=== PATIENT | male | born 1935 | race Caucasian/White ===

== ENCOUNTER 2019-06-11 13:58 | Inpatient (IN) | payer OTHER, SELFPAY ==
[2019-06-11] VITALS (91 sets, daily range): BP systolic 77–158; BP diastolic 38–110; PULSE 55–173; RESP 15–38; TEMP 36.8–39.7; O2SAT 29–98
--- NOTE | 2019-06-11 14:58 | ED.GENADUL_ITS ---
Discharge Plan Disposition Patient Disposition: [facility] INPATIENT Condition: Serious Discharge Details Chief Complaint: GenMedical Clinical Impression: Fever Primary Care Provider: Ulises Mckeon ED Provider: Aníbal Hewitt Home Meds and New Rx's Prescriptions: No Action aspirin 325 mg Tablet,Delayed Release (Dr/Ec) 325 mg PO DAILY RF: 0 gabapentin 100 mg Capsule 100 mg PO BID RF: 0 Medical Decision Making 1500??83-year-old male with multiple medical problems, here with shaking chills after being outside in the cold for prolonged period of time. Patient is currently tachycardic and in atrial fibrillation. Screening ECG was reviewed and interpreted by me: Alexandra. fib 125 bpm, low voltage in limb leads, no STEMI. Consider infectious etiology. No signs of focal bacterial infection on exam. Plan to check screening labs, chest x-ray and urinalysis. --Labs reviewed and leukocytosis noted. Lactate 1.6. Patient now febrile. Chest x-ray reviewed and interpreted by radiology: Pleural thickening in the right apex, asymmetric with the contralateral side. Consider CT. Scarring, infiltrate or lesion not excluded. Urinalysis reviewed and is not consistent with UTI. Plan to proceed to CT of the chest. --Labs reviewed and influenza testing negative. CT of the chest was interpreted by radiology:IMPRESSION: 1. Small pericardial effusion. 2. Moderate centrilobular pulmonary emphysema. 3. Pulmonary nodule.For patients at low risk (minimal or absent history of smoking and of other known risk factors), recommend CT at 6-12 months, then consider CT at 18-24 months. For patients at high risk (history of smoking or of other known risk factors), recommend CT at 6-12 months, then CT at 18-24 months. (Naren et al., Fleischner Society, 2017) CT of the neck was interpreted by radiology: IMPRESSION: 1. Status post right neck surgery. No recurrent or residual disease identified. 2. No enhancing masses. 3. No metastatic disease or lymphadenopathy. Unclear etiology at this point for patient's fever. He remains tachycardic in atrial fibrillation with heart rate in the 1 teens to 120. Blood cultures have been sent. Plan will be to admit for observation. Plan to give Zosyn 4.5 mg IV to cover for potential bacteremia. I spoke with Dr. Humphrey who will admit the patient. He request bridging orders be placed to the floor. HPI General Mode of arrival: ambulatory . Date/Time Provider Initiated Documentation: 06/11/19 14:38 . Limitations to Documentation: no limitations . Information obtained by: patient . HPI Narrative: 83-year-old male with multiple medical problems including history of atrial fibrillation, throat cancer, status post G-tube placement, here with chief complaint of chills. Patient notes he was outside working this morning and suddenly became quite cold. He had been working outside in the cold weather for some time. He came inside and his noted he was confused and took his temperature and it was 95 ?F. He had shaking chills at that time. Patient does note chronic excessive phlegm chronic unchanged cough. He denies urinary symptoms. Denies chest pain or shortness of breath. Denies abdominal pain. No headache or neck pain. Patient denies rash. Related Data Home Medications Medication Instructions Recorded Confirmed aspirin 325 mg PO DAILY 06/11/19 06/11/19 gabapentin 100 mg PO BID 06/11/19 06/11/19 Allergies Allergy/AdvReac Type Severity Reaction Status Date / Time No Known Allergies Allergy Unverified 06/11/19 14:24 General Stated Complaint: GenMedical KWESI: 3 Review of Systems Constitutional Constitutional: Reports chills PFSH Social History Smoking/Tobacco Use Status: Former Tobacco Use Alcohol Intake: former Substance use type: does not use Do you feel safe at home: Yes Do you feel safe in your relationship?: Yes Exam Const General: cooperative and no acute distress HENMT Mouth: moist mucous membranes Eyes Conjunctivae: normal conjunctivae Sclera: normal sclerae Neck Neck: trachea midline and supple Resp Auscultation: clear to auscultation bilaterally, no rales, no rhonchi and no wheezes Cardio Jugular venous pressure: no JVD Rate: tachycardic Rhythm: abnormal rhythm irregularly irregular GI Palpation: soft, not firm, no guarding, no masses, not rigid and nontender Skin General skin exam: no rashes or lesions noted Neuro General: alert, awake, oriented x3 and tone normal Extrem General: no calf tenderness and no edema Psych Appearance: grossly normal Mental Status: mental status grossly normal Speech and Movement: speech and movement normal Course Vital Signs Vital signs: Vital Signs Temperature 37.3 C 06/11/19 14:20 Pulse 117 H 06/11/19 14:20 Respiratory Rate 18 06/11/19 14:20 Blood Pressure 158/109 H 06/11/19 14:20 Pulse Oximetry 95 06/11/19 14:20 Temperature 37.3 C 06/11/19 14:20 Temperature Source Skin 06/11/19 14:20 Pulse 117 H 06/11/19 14:20 Respiratory Rate 22 06/11/19 14:45 Respiratory Effort 06/11/19 14:45 Respiratory Depth Normal 06/11/19 14:45 Blood Pressure 158/109 H 06/11/19 14:20 Blood Pressure Position Sitting 06/11/19 14:20 Pulse Oximetry 95 06/11/19 14:20 Oxygen Delivery Method Room Air 06/11/19 14:20 Oxygen Flow Rate 0 06/11/19 14:20
[2019-06-11 15:05] LABS: Abs Immature Grans 0.02 k/cumm (0.0-0.09); Absolute Basophil Count 0.01 k/cumm (0.0-0.2); Absolute Eosinophil Count 0.01 k/cumm (0.0-0.7); Absolute Neutrophil Count 12.59 k/cumm (1.2-6.7); Basophils % 0.1; Eosinophils % 0.1; HCT 43.5 % (40.0-50.0); HGB 14.6 g/dL (13.5-17.5); Immature Grans % 0.2 %; Lactate 1.6 mmol/L (0.6-1.4); Lymphocytes % 1.7; Mean Corp. HGB Concentration 33.6 g/dL (32.0-36.0); Mean Corpuscular Hemoglobin 33.4 pg (27.0-33.0); Mean Corpuscular Volume 99.5 fL (80-95); Mean Platelet Volume 12.6 fL (8.0-11.0); Monocytes % 2.6; Neutrophils % 95.3; Platelet Count 142 x1000/uL (130-400); RBC 4.37 m/cumm (4.50-6.00); RBC Distribution Width 12.5 % (11.8-14.1); White Blood Cell Count 13.21 k/cumm (4.4-10.8)
[2019-06-11 15:06] LABS: Absolute Lymphocyte Count 0.22 k/cumm (1.2-3.4); Absolute Monocyte Count 0.34 k/cumm (0.11-0.7)
[2019-06-11 15:36] LABS: ALT 29 U/L (16-63); AST 35 U/L (15-37); Albumin 3.7 g/dL (3.4-5.0); Alkaline Phosphatase 107 U/L (46-116); Anion Gap 8.1 mmol/L (3-11); BUN 34 mg/dL (7-18); Bilirubin, Total 1.4 mg/dL (0.2-1.0); CO2 29.9 mmol/L (21.0-32.0); CREATININE 1.11 mg/dL (0.70-1.30); Calcium 9.8 mg/dL (8.5-10.1); Chloride 103 mmol/L (98-107); Glucose 100 mg/dL (74-106); Magnesium 1.6 mg/dL (1.8-2.4); Potassium 4.6 mmol/L (3.5-5.1); Sodium 141 mmol/L (136-145); Total Protein 7.5 g/dL (6.4-8.2); Troponin I < 0.05 ng/Ml (<0.06)
[2019-06-11 15:37] LABS: TSH (W/Ref FT4) 7.49 uIU/mL (0.36-3.74)
--- NOTE | 2019-06-11 15:53 | DI.RAD_ITS ---
EXAM: XR CHEST 2V PA LATERAL INDICATION: fever. COMPARISON: CT NECK CHEST W from 06/11/2019 TECHNIQUE: 2D digital imaging was performed. FINDINGS: The heart size is normal. Surgical clips are seen at the right lower neck. There is upper lobe vol ume loss and underlying emphysematous changes and mild scarring. No infiltrate, effusion or pulmonar y edema is seen. There is no thoracic compression fracture. IMPRESSION: No acute findings.
[2019-06-11 16:12] LABS: FREE T4 0.79 ng/dL (0.76-1.46)
--- NOTE | 2019-06-11 16:35 | DI.VRAD_ITS ---
PROCEDURE INFORMATION: Exam: XR Chest, 2 Views Exam date and time: 06/11/2019 3:58 PM Age: 83 years old Clinical indication: Other: Fever TECHNIQUE: Imaging protocol: XR of the chest Views: 2 views. COMPARISON: No relevant prior studies available. FINDINGS: Lungs: See Pleural Space Finding. Pleural space: Pleural thickening in the right apex, asymmetric with the contralateral side. Consider CT. Scarring, infiltrate or lesion is not excluded. Heart/Mediastinum: Unremarkable. No cardiomegaly. Bones/joints: Degenerative changes in the spine. IMPRESSION: Pleural thickening in the right apex, asymmetric with the contralateral side. Consider CT. Scarring, infiltrate or lesion is not excluded. Dictated and Authenticated by: Jong Odonnell MD. Ordering:JAMAAL Spangler MD
[2019-06-11 16:49] LABS: Bilirubin Negative (Negative); Blood Negative (Negative); Clarity Clear (Clear); Glucose Negative (Negative); Ketones 15 mg/dL (Negative); Leukocyte Esterase Negative (Negative); Nitrite Negative (Negative); Specific Gravity 1.015 (1.005-1.025); Urobilinogen 0.2 EU/dL (Up TO 0.2); pH >= 9.0 (5-8)
[2019-06-11] MEDS: Omnipaque 350 MG/ML 100 ML BTL IJ (17:25)
--- NOTE | 2019-06-11 17:27 | DI.CT_ITS ---
EXAM: CT NECK CHEST W CLINICAL HISTORY: fever, prior throat ca, s/p radiation and resection TECHNIQUE: Post IV contrast of 100 cc's of Omnipaque 350. COMPARISON: No exams were available for comparison FINDINGS: Neck CT: The patient is status post surgery with resection of the right submandibular gland. No ad enopathy, abscess or fluid collection is seen. The airway is unremarkable. There is no significant tonsillar enlargement. No thyroid nodules are seen. Degenerative changes are noted in the cervical spine. Chest CT: There is a small pericardial effusion. No pleural effusions are seen. There is central lo bular emphysema. No focal infiltrate or adenopathy is seen. A 7 millimeter nodule is noted in the r ight upper lobe. The aorta is calcified but normal in diameter. Degenerative changes are seen in th e spine. IMPRESSION: Neck CT: Status post resection of the right submandibular gland. No evidence of mass, adenopathy or fluid collection. Chest CT: Small pericardial effusion. Centrilobular emphysema. 7 millimeter right upper lobe nodule . Comparison with previous exams is recommended if available. If no comparison exams are available , follow-up CT is recommended 6-12 months.
--- NOTE | 2019-06-11 18:08 | DI.VRAD_ITS ---
PROCEDURE INFORMATION: Exam: CT Neck With Contrast Exam date and time: 06/11/2019 5:30 PM Age: 83 years old Clinical indication: Fever; Other: HX throat CA, rapition and resection; Prior surgery TECHNIQUE: Imaging protocol: Computed tomography images of the neck with intravenous contrast. COMPARISON: CR XR CHEST 2V PA LATERAL 06/11/2019 3:53 PM FINDINGS: Nasopharynx: Unremarkable. Oropharynx: Unremarkable. No significant tonsillar enlargement. Hypopharynx: Unremarkable Larynx: Unremarkable. Normal epiglottis. Retropharyngeal space: Unremarkable. Submandibular/Parotid glands: Right submandibular gland appears to have been removed. Contralateral submandibular and bilateral parotid glands appear normal. Thyroid: Normal. No enlarged or calcified nodules. Lymph nodes: Unremarkable. No lymphadenopathy. Trachea: Visualized trachea is unremarkable. Bones/joints: Grade 1 anterolisthesis of C4 on C5. Degenerative disc disease at C5-6 and C6-7. Degenerative changes and atlantoaxial joint. Soft tissues: Unremarkable. No significant soft tissue swelling. Other findings: Status post right neck surgery. Multilevel facet arthrosis. IMPRESSION: 1. Status post right neck surgery. No recurrent or residual disease identified. 2. No enhancing masses. 3. No metastatic disease or lymphadenopathy. PROCEDURE INFORMATION: Exam: CT Chest With Contrast Exam date and time: 06/11/2019 5:30 PM Age: 83 years old Clinical indication: Fever; Other: HX throat CA, rapition and resection; Prior surgery TECHNIQUE: Imaging protocol: Computed tomography of the chest with intravenous contrast. COMPARISON: CR XR CHEST 2V PA LATERAL 06/11/2019 3:53 PM FINDINGS: Lungs: Moderate centrilobular pulmonary emphysema. 7 mm nodule in the right upper lobe. Pleural space: Unremarkable. No pneumothorax. No pleural effusion. Heart: Small pericardial effusion. Aorta: Unremarkable. No aortic aneurysm. Lymph nodes: Unremarkable. No enlarged lymph nodes. Stomach and bowel: PEG tube in place. Bones/joints: Degenerative changes in the spine. Soft tissues: Unremarkable. Other findings: Atherosclerosis. IMPRESSION: 1. Small pericardial effusion. 2. Moderate centrilobular pulmonary emphysema. 3. Pulmonary nodule.For patients at low risk (minimal or absent history of smoking and of other known risk factors), recommend CT at 6-12 months, then consider CT at 18-24 months. For patients at high risk (history of smoking or of other known risk factors), recommend CT at 6-12 months, then CT at 18-24 months. (Naren et al., Fleischner Society, 2017) Dictated and Authenticated by: Jong Odonnell MD. Ordering:JAMAAL Spangler MD
[2019-06-11] MEDS: PIPERACILLIN/TAZO 4.5 GM in Normal Saline 100 ML IVPB (19:15)
[2019-06-11] MEDS: Normal Saline 500 ML IV (19:26)
[2019-06-11] MEDS: ACETAMINOPHEN 1,000 MG/100 ML BTL 400 MG IVPB (19:38)
[2019-06-11 20:04] LABS: Lactate 0.9 mmol/L (0.6-1.4)
[2019-06-11 20:33] LABS: Procalcitonin 6.6 ng/mL
[2019-06-11] MEDS: Normal Saline 1,000 ML 1000 ML IV ×2 (21:15→21:30)
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
[2019-06-12] VITALS (72 sets, daily range): BP systolic 85–157; BP diastolic 40–99; PULSE 54–181; RESP 17–33; TEMP 36.5–38.4; O2SAT 91–99
[2019-06-12] MEDS: Normal Saline 1,000 ML 85 ML IV ×3 (01:00→18:08)
[2019-06-12] MEDS: PIPERACILLIN/TAZO 4.5 GM in Normal Saline 100 ML IVPB ×3 (02:02→17:26)
[2019-06-12] MEDS: VANCOMYCIN 1,250 MG in Normal Saline 250 ML 167 MG IV (02:25)
[2019-06-12] MEDS: Water,Injection,Sterile 10 ML VIAL (02:28)
[2019-06-12] MEDS: Normal Saline Flush 10 ML SYR IVP ×2 (05:10→09:44)
[2019-06-12] MEDS: MAGNESIUM SULFATE 4 GM/100 ML BAG IVPB (06:38)
[2019-06-12 07:20] LABS: Lactate 1.2 mmol/L (0.6-1.4)
[2019-06-12 07:25] LABS: Abs Immature Grans 0.03 k/cumm (0.0-0.09); Absolute Basophil Count 0.01 k/cumm (0.0-0.2); Absolute Lymphocyte Count 0.41 k/cumm (1.2-3.4); Absolute Monocyte Count 0.58 k/cumm (0.11-0.7); Absolute Neutrophil Count 13.47 k/cumm (1.2-6.7); Basophils % 0.1; HCT 37.1 % (40.0-50.0); HGB 12.3 g/dL (13.5-17.5); Immature Grans % 0.2 %; Lymphocytes % 2.8; Mean Corp. HGB Concentration 33.2 g/dL (32.0-36.0); Mean Corpuscular Hemoglobin 32.7 pg (27.0-33.0); Mean Corpuscular Volume 98.7 fL (80-95); Mean Platelet Volume 12.5 fL (8.0-11.0); Neutrophils % 92.9; Platelet Count 119 x1000/uL (130-400); RBC 3.76 m/cumm (4.50-6.00)
[2019-06-12 07:38] LABS: C-Reactive Protein 6.93 mg/dL (0.0-0.3); Magnesium 1.7 mg/dL (1.8-2.4)
[2019-06-12 07:46] LABS: ALT 23 U/L (16-63); AST 31 U/L (15-37); Albumin 2.8 g/dL (3.4-5.0); Alkaline Phosphatase 71 U/L (46-116); Anion Gap 8.6 mmol/L (3-11); BUN 34 mg/dL (7-18); Bilirubin, Total 1.2 mg/dL (0.2-1.0); CO2 25.4 mmol/L (21.0-32.0); CREATININE 1.14 mg/dL (0.70-1.30); Calcium 8.8 mg/dL (8.5-10.1); Chloride 106 mmol/L (98-107); Glucose 118 mg/dL (74-106); Potassium 4.1 mmol/L (3.5-5.1); Sodium 140 mmol/L (136-145); Total Protein 5.9 g/dL (6.4-8.2)
[2019-06-12 08:05] LABS: Procalcitonin 8.7 ng/mL
[2019-06-12 08:06] LABS: ESR 24 mm/hr (1-20)
--- NOTE | 2019-06-12 08:15 | PGE_ITS ---
Date of Service Date of service: 06/12/19 Time of Service: 12:17 Assessment and Plan Assessment and plan (1) Sepsis: Status: Acute Assessment and plan: Shock resolved. ? source - imaging of the chest is negative for infection, but probability of aspiration is high. While CT of the abdomen is negative, intraabdominal infection is also possible. RLE cellulitis/OM 2nd/3rd digits also possible. 2/4 blood culture bottles (same set) positive for GPC. Endocarditis to be ruled out. Echo (TTE) is pending for tomorrow. Repeat blood cultures are pending. Obtaining sputum culture as well. The patient does seem to be clinically fluid responsive and not fluid overloaded, so we will continue IVF. Abx escalated: added levofloxacin. Consult podiatry and general surgery (?PEG tube issue, ?peritonitis - less likely). Continue to monitor in the ICU. (2) Atrial fibrillation: Status: Chronic Assessment and plan: HR now controlled - probably better in response to IVF and abx. Continue to monitor. (3) Hypomagnesemia: Status: Acute Assessment and plan: Replete and recheck in am (4) Incidental lung nodule, > 3mm and < 8mm: Status: Acute Assessment and plan: Incidental finding on his CT scan. Will need outpatient PET scan. (5) Dysphagia: Status: Acute Assessment and plan: NPO except thin water/coffee. Consider obtaining swallow eval on this admission. (6) DVT prophylaxis: Status: Acute Assessment and plan: Lovenox (7) Discharge planning issues: Status: Acute Assessment and plan: Full code obtain palliative care consult. Keep in ICU. Total Critical Care Time 40 minutes Subjective Subjective Interval history since last seen: Off pressors since 2 am - did become hypertensive transiently, now back to 90-low 100's SBP. MAP 65-67. On NS at 85 cc/hr. HR up to 145 when standing; Afib. HR in 60's-70's at rest. Mentating ok. Reported dizziness earlier today, but it has resolved now. Thick secretions - sputum sample sent. Not requiring oxygen. Nursing notes pain around PEG tube and redness/lesions on RLE 2nd and 3rd digits. Has 2 IVs. Intermittent numbness L hand/fingers since falling on his elbow 1 week ago. Exam Narrative Exam Narrative: General: Very pleasant elderly male, receiving tube feeding at the time that I come to see him, appears comfortable, A&Ox3 HEENT: EOMI, MMM Heart: RRR, no m/r/g, mildly tachycardic Lungs: scattered crackles throughout, somewhat clears with coughing Abdomen: soft, but he does jump when I press around his PEG tube site - the patient states it is because it is cold Extremities: no e/c/c BLE's. 2+ pedal pulses B. RLE 2nd and 3rd digit erythematous with lesions at the tips. No open skin at this time. Objective Objective Clinical Data: Abnormal lab results 06/11/19 06/11/19 06/11/19 Range/Units 15:00 15:00 15:00 WBC 13.21 H (4.4-10.8) k/cumm RBC 4.37 L (4.50-6.00) m/cumm Hgb (13.5-17.5) g/dL Hct (40.0-50.0) % MCV 99.5 H (80-95) fL MCH 33.4 H (27.0-33.0) pg Plt Count (130-400) x1000/uL MPV 12.6 H (8.0-11.0) fL Absolute Neutrophils 12.59 H (1.2-6.7) k/cumm Absolute Lymphocytes 0.22 L (1.2-3.4) k/cumm ESR (1-20) mm/hr BUN 34 H (7-18) mg/dL Glucose (74-106) mg/dL Lactate 1.6 H (0.6-1.4) mmol/L Magnesium 1.6 L (1.8-2.4) mg/dL Total Bilirubin 1.4 H (0.2-1.0) mg/dL C-Reactive Protein (0.0-0.3) mg/dL Total Protein (6.4-8.2) g/dL Albumin (3.4-5.0) g/dL TSH (0.36-3.74) uIU/mL Urine pH (5-8) Urine Ketones (Negative) mg/dL 06/11/19 06/11/19 06/12/19 Range/Units 15:00 16:38 07:06 WBC (4.4-10.8) k/cumm RBC (4.50-6.00) m/cumm Hgb (13.5-17.5) g/dL Hct (40.0-50.0) % MCV (80-95) fL MCH (27.0-33.0) pg Plt Count (130-400) x1000/uL MPV (8.0-11.0) fL Absolute Neutrophils (1.2-6.7) k/cumm Absolute Lymphocytes (1.2-3.4) k/cumm ESR (1-20) mm/hr BUN 34 H (7-18) mg/dL Glucose 118 H (74-106) mg/dL Lactate (0.6-1.4) mmol/L Magnesium (1.8-2.4) mg/dL Total Bilirubin 1.2 H (0.2-1.0) mg/dL C-Reactive Protein (0.0-0.3) mg/dL Total Protein 5.9 L (6.4-8.2) g/dL Albumin 2.8 L (3.4-5.0) g/dL TSH 7.49 H (0.36-3.74) uIU/mL Urine pH >= 9.0 H (5-8) Urine Ketones 15 H (Negative) mg/dL 06/12/19 06/12/19 06/12/19 Range/Units 07:06 07:06 07:06 WBC 14.50 H (4.4-10.8) k/cumm RBC 3.76 L (4.50-6.00) m/cumm Hgb 12.3 L D (13.5-17.5) g/dL Hct 37.1 L (40.0-50.0) % MCV 98.7 H (80-95) fL MCH (27.0-33.0) pg Plt Count 119 L (130-400) x1000/uL MPV 12.5 H (8.0-11.0) fL Absolute Neutrophils 13.47 H (1.2-6.7) k/cumm Absolute Lymphocytes 0.41 L (1.2-3.4) k/cumm ESR 24 H (1-20) mm/hr BUN (7-18) mg/dL Glucose (74-106) mg/dL Lactate (0.6-1.4) mmol/L Magnesium 1.7 L (1.8-2.4) mg/dL Total Bilirubin (0.2-1.0) mg/dL C-Reactive Protein 6.93 H (0.0-0.3) mg/dL Total Protein (6.4-8.2) g/dL Albumin (3.4-5.0) g/dL TSH (0.36-3.74) uIU/mL Urine pH (5-8) Urine Ketones (Negative) mg/dL Vital Signs Temperature 37.1 C 06/12/19 03:24 Temperature Source Temporal Artery Scan 06/12/19 08:04 Pulse 62 06/12/19 08:01 Pulse 80 06/12/19 08:01 Respiratory Rate 30 H 06/12/19 08:01 Respiratory Effort Non-Labored 06/12/19 03:24 Respiratory Depth Shallow 06/12/19 03:24 Respiratory Pattern Tachypnea 06/12/19 03:24 Blood Pressure 97/53 L 06/12/19 08:01 Blood Pressure Mean 63 06/12/19 08:01 Blood Pressure Position Sitting 06/11/19 14:20 Pulse Oximetry 93 L 06/12/19 08:01 Oxygen Delivery Method Room Air 06/12/19 03:24 Oxygen Flow Rate 0 06/12/19 03:24 Pain Level 37 06/12/19 08:04 Intake & Output 06/11/19 06/11/19 06/12/19 11:59 23:59 11:59 Intake Total 3.124 / 3.124 3983.75 / 3983.75 Output Total 475 / 475 Balance 3.124 / 3.124 3508.75 / 3508.75 Weight 77.111 kg 82 kg Intake: IV 3.124 / 3.124 3509.75 / 3509.75 Oral 474 / 474 Output: Urine 475 / 475 Other: Urine Color Light Ellen Urine Appearance Clear Urine Odor Normal Voiding Methods Urinal Laboratory Results WBC 14.50 k/cumm (4.4-10.8) H 06/12/19 07:06 RBC 3.76 m/cumm (4.50-6.00) L 06/12/19 07:06 Hgb 12.3 g/dL (13.5-17.5) L D 06/12/19 07:06 Hct 37.1 % (40.0-50.0) L 06/12/19 07:06 MCV 98.7 fL (80-95) H 06/12/19 07:06 MCH 32.7 pg (27.0-33.0) 06/12/19 07:06 MCHC 33.2 g/dL (32.0-36.0) 06/12/19 07:06 RDW 13.0 % (11.8-14.1) 06/12/19 07:06 Plt Count 119 x1000/uL (130-400) L 06/12/19 07:06 MPV 12.5 fL (8.0-11.0) H 06/12/19 07:06 Immature Gran % 0.2 % 06/12/19 07:06 Neutrophils % 92.9 06/12/19 07:06 Lymphocytes % 2.8 06/12/19 07:06 Monocytes % 4.0 06/12/19 07:06 Eosinophils % 0.0 06/12/19 07:06 Basophils % 0.1 06/12/19 07:06 Absolute Neutrophils 13.47 k/cumm (1.2-6.7) H 06/12/19 07:06 Absolute Lymphocytes 0.41 k/cumm (1.2-3.4) L 06/12/19 07:06 Absolute Monocytes 0.58 k/cumm (0.11-0.7) 06/12/19 07:06 Absolute Eosinophils 0.00 k/cumm (0.0-0.7) 06/12/19 07:06 Absolute Basophils 0.01 k/cumm (0.0-0.2) 06/12/19 07:06 ESR 24 mm/hr (1-20) H 06/12/19 07:06 Sodium 140 mmol/L (136-145) 06/12/19 07:06 Potassium 4.1 mmol/L (3.5-5.1) 06/12/19 07:06 Chloride 106 mmol/L (98-107) 06/12/19 07:06 Carbon Dioxide 25.4 mmol/L (21.0-32.0) 06/12/19 07:06 Anion Gap 8.6 mmol/L (3-11) 06/12/19 07:06 BUN 34 mg/dL (7-18) H 06/12/19 07:06 Creatinine 1.14 mg/dL (0.70-1.30) 06/12/19 07:06 Estimated GFR/1.73 m2 >= 60.00 (mL/min/1.73m2) 06/12/19 07:06 Glucose 118 mg/dL (74-106) H 06/12/19 07:06 Lactate 1.2 mmol/L (0.6-1.4) 06/12/19 07:06 Calcium 8.8 mg/dL (8.5-10.1) 06/12/19 07:06 Magnesium 1.7 mg/dL (1.8-2.4) L 06/12/19 07:06 Total Bilirubin 1.2 mg/dL (0.2-1.0) H 06/12/19 07:06 AST 31 U/L (15-37) 06/12/19 07:06 ALT 23 U/L (16-63) 06/12/19 07:06 Alkaline Phosphatase 71 U/L (46-116) 06/12/19 07:06 Troponin I < 0.05 ng/Ml (<0.06) 06/11/19 15:00 C-Reactive Protein 6.93 mg/dL (0.0-0.3) H 06/12/19 07:06 Total Protein 5.9 g/dL (6.4-8.2) L 06/12/19 07:06 Albumin 2.8 g/dL (3.4-5.0) L 06/12/19 07:06 Procalcitonin 8.7 ng/mL 06/12/19 07:06 TSH 7.49 uIU/mL (0.36-3.74) H 06/11/19 15:00 Free T4 0.79 ng/dL (0.76-1.46) 06/11/19 15:00 Urine Color Yellow (Yellow) 06/11/19 16:38 Urine Clarity Clear (Clear) 06/11/19 16:38 Urine pH >= 9.0 (5-8) H 06/11/19 16:38 Ur Specific [place] 1.015 (1.005-1.025) 06/11/19 16:38 Urine Protein Negative mg/dL (Negative) 06/11/19 16:38 Urine Ketones 15 mg/dL (Negative) H 06/11/19 16:38 Urine Blood Negative (Negative) 06/11/19 16:38 Urine Nitrite Negative (Negative) 06/11/19 16:38 Urine Bilirubin Negative (Negative) 06/11/19 16:38 Urine Urobilinogen 0.2 EU/dL (Up TO 0.2) 06/11/19 16:38 Ur Leukocyte Esterase Negative (Negative) 06/11/19 16:38 Urine Glucose Negative mg/dL (Negative) 06/11/19 16:38 CT abdomen/pelvis with contrast: Pleural space: Small bilateral pleural effusions Liver: Normal. No mass. Gallbladder and bile ducts: Normal. No calcified stones. No ductal dilation. Pancreas: Normal. No ductal dilation. Spleen: Normal. No splenomegaly. Adrenals: Normal. No mass. Kidneys and ureters: Normal. No hydronephrosis. Stomach and bowel: Unremarkable. No obstruction. No mucosal thickening. Appendix: No evidence of appendicitis. Intraperitoneal space: Unremarkable. No free air. No significant fluid collection. Vasculature: Unremarkable. No abdominal aortic aneurysm. Lymph nodes: Unremarkable. No enlarged lymph nodes. Bladder: Unremarkable as visualized. Reproductive: Unremarkable as visualized. Bones/joints: Unremarkable. No acute fracture. Soft tissues: Unremarkable.
--- NOTE | 2019-06-12 08:22 | DI.CT_ITS ---
EXAM: CT ABDOMEN PELVIS W CLINICAL HISTORY: abdominal pain TECHNIQUE: Post IV contrast. No oral contrast. Residual contrast is seen within the renal collecti ng system and bladder secondary to the previous chest and neck CT. COMPARISON: No exams were available for comparison FINDINGS: Small bilateral pleural effusions and minimal basilar atelectasis. The liver, gallbladder, spleen, pancreas, kidneys and adrenals are unremarkable. A PEG tube is noted in the stomach. There is respi ratory motion on the mid portion of the scan. No bowel dilatation is seen. There is a right inguina l hernia containing a nonobstructed loop of bowel. The prostate is enlarged. The bladder is somewha t distended and shows mild bladder wall trabeculation. Degenerative changes are seen in the spine. The aorta shows calcification but is normal in diameter. IMPRESSION: Right inguinal hernia containing a loop of nonobstructed bowel. Enlarged prostate. Small bilateral pleural effusions.
[2019-06-12] MEDS: Omnipaque 350 MG/ML 100 ML BTL IJ (08:26)
--- NOTE | 2019-06-12 08:46 | DI.VRAD_ITS ---
Addendum created by Tato Leblanc MD on 06/12/2019 8:47:21 AM EST Impression: No acute findings Initial report created on 06/12/2019 8:46:50 AM EST PROCEDURE INFORMATION: Exam: CT Abdomen And Pelvis With Contrast Exam date and time: 06/12/2019 7:28 AM Age: 83 years old Clinical indication: Abdominal pain; Generalized TECHNIQUE: Imaging protocol: Computed tomography of the abdomen and pelvis with intravenous contrast. Radiation optimization: All CT scans at this facility use at least one of these dose optimization techniques: automated exposure control; mA and/or kV adjustment per patient size (includes targeted exams where dose is matched to clinical indication); or iterative reconstruction. Contrast material: OMNIPAQUE 350; Contrast volume: 100 ml; Contrast route: IV; COMPARISON: No relevant prior studies available. FINDINGS: Pleural space: Small bilateral pleural effusions Liver: Normal. No mass. Gallbladder and bile ducts: Normal. No calcified stones. No ductal dilation. Pancreas: Normal. No ductal dilation. Spleen: Normal. No splenomegaly. Adrenals: Normal. No mass. Kidneys and ureters: Normal. No hydronephrosis. Stomach and bowel: Unremarkable. No obstruction. No mucosal thickening. Appendix: No evidence of appendicitis. Intraperitoneal space: Unremarkable. No free air. No significant fluid collection. Vasculature: Unremarkable. No abdominal aortic aneurysm. Lymph nodes: Unremarkable. No enlarged lymph nodes. Bladder: Unremarkable as visualized. Reproductive: Unremarkable as visualized. Bones/joints: Unremarkable. No acute fracture. Soft tissues: Unremarkable. IMPRESSION: Dictated and Authenticated by: Tato Leblanc MD. Ordering:[facility] John Amanda MD
--- NOTE | 2019-06-12 10:33 | DI.RAD_ITS ---
EXAM: XR FOOT RT LIMITED INDICATION: concern for OM 2nd and 3rd digit RLE. COMPARISON: No exams were available for comparison TECHNIQUE: 2D digital imaging was performed. A portable exam was performed. The PA view shows subo ptimal positioning. FINDINGS: No fracture or dislocation is seen. There are no gross bony erosions. Heel spur is seen. IMPRESSION: No acute abnormality.
[2019-06-12] MEDS: levoFLOXacin 750 MG/150 ML BAG 100 MG IVPB (11:41)
[2019-06-12] MEDS: Acetaminophen 325 MG TAB PO (11:44)
--- NOTE | 2019-06-12 13:03 | DI.VRAD_ITS ---
PROCEDURE INFORMATION: Exam: XR Right Toe(s) Exam date and time: 06/12/2019 12:35 PM Age: 83 years old Clinical indication: Toes; Right; Patient HX: Pain R 3-4 digits TECHNIQUE: Imaging protocol: XR Right toes. Views: Minimum 2 views. COMPARISON: No relevant prior studies available. FINDINGS: Bones/joints: There is no evidence of acute fracture.There is no evidence of malalignment or dislocation. Soft tissues: Normal. IMPRESSION: There is no evidence of acute fracture.There is no evidence of malalignment or dislocation. Dictated and Authenticated by: Linda Milan MD. Ordering:VIRGINIA Sanderson MD
--- NOTE | 2019-06-12 13:20 | W.NUTCONSULT ---
Date of service: 06/12/19 Time of Service: 13:20 Nutritional Consult ASSESSMENT: Alerted to nutritional needs for Leonard Lares who is is on his own tube feeding of Isosource 1.5. He has enough to get through until tomorrow afternoon. We have ordered 1 case of this for him with the delivery anticipated tomorrow. Will follow up Thursday to assess any further nutritional needs. Time Spent in Nutritional Counseling and Treatment: 2 minutes with RN
--- NOTE | 2019-06-12 13:35 | PHARADMIT ---
Admission Pharmacy Clinical Review FEVER OF UNKNOWN ORIGIN Code Status Full Code Current Weight 82 kg Renally Cleared and Narrow Therapeutic Index Meds CRCL ~57ML/MIN QTc Value / Action Taken 433 BP Control, Fever 94/48 TEMP 38.4 Electrolytes reviewed OK DVT Prophylaxis ENOXAPARIN Opiate Usage / Scheduled Bowel Regimen Ordered NO/PRN Plt/SCr for Heparin / Enoxaparin 119/1.14 INR for Warfarin NA H/H stable, WBC/Bands 12.3/37.1 WBC 14.50 Antibiotic appropriateness VANCO AND ZOSYN STARTED YESTERDAY, LEVOFLOXACIN STARTED TODAY Cultures and Sensitivities BC ONE BOTTLE SHOWS GRAM + COCCI OTHERS ARE PENDING, FLU NEGATIVE Surgical ABX d/c within 24 hr NA DM control / Insulin Dosing NA Heart Failure (Check EF%) (JOSUE's, B-Block, Diuretics) NA IV to PO Switch Home Meds Reviewed Home Meds Not Ordered aspirin 325 mg PO DAILY gabapentin 100 mg PO BID lactose-reduced food with fibr [Isosource 1.5 Mekhi] 480 ml FEEDING TUBE TID Comments SOURCE OF INFECTION MAYBE INTRABDOMINAL OR CELLULITIS, WAS ON NOREPINEPHRINE OVERNIGHT BUT NOW STOPPED
[2019-06-12] MEDS: MAGNESIUM SULFATE 2 GM/50 ML BAG IVPB (13:44)
[2019-06-12] MEDS: Silver Nitrate Stick 4 EACH TP (13:48)
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
[2019-06-12] MEDS: Polyethylene Glycol 3350 17 GM PACKET PO (17:43)
--- NOTE | 2019-06-12 19:41 | INITIAL_ITS ---
- If Service Date Differs Date of service: 06/12/19 Time of Service: 19:41 Care Management Initial Assess REASON FOR HOSPITALIZATION:: Sepsis PAST MEDICAL HISTORY/PAST SURGICAL HISTORY:: Atrial fibrillation (Chronic). H/O oral cancer (Acute). Surgical History. History of radical neck dissection (Acute). History of submandibular gland removal (Acute). S/P partial glossectomy (Acute). G-tube PREVIOUS FUNCTIONAL STATUS/SOCIAL/FAMILY SUPPORTS:: Leonard lives at home with his spouse in [place], [place]. 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 He has five children all live out of the area. He does not use ambulatory aids, he does have a cane however uses infrequent. Leonard receives nutrition through g-tube he does not take in food orally due to radical head and neck surgery due to oral cancer. Leonard drives and is independent with ADL's. CURRENT FUNCTIONAL STATUS:: Leonard is hard of hearing however he is able to engage with CM during assessment. His spouse is present and appears supportive. Leonard has questions r/t his diagnosis he is worried and asks clarifying questions. Leonard is worried that his cancer may have returned due to CT findings, he is also worried that his heart may be affected from his current infection. Leonard understands he will have an echo Thursday and will stay in the ICU for monitoring and IV medications including multiple abx. ADVANCE DIRECTIVES:: Provided patient with forms he believes he has completed them in the past, CM will follow up with the [place] prior to completing new directives. Has patient been provided with information about the portal?: Yes Did the patient sign up for the portal?: No CODE STATUS:: Full Code INSURANCE COVERAGE / FINANCIAL ISSUES:: Medicare and [facility] CURRENT HOME/COMMUNITY SERVICES/EQUIPMENT:: G-tube, receives nutrition supplment though the [facility], his current medications also come [facility] the [facility]. He has a provider through the [place] as well as [facility]. He does have a cane however he does not use it unless needed. PRIMARY CARE PHYSICIAN:: POTENTIAL DISCHARGE NEEDS:: Follow up with primary care scheduled prior to discharge. PATIENT/FAMILY EDUCATION NEEDS:: Discharge education, limitations and follow up plan of care including ask me three and self management. Spouse Brittni should be present for discharge education. ANTICIPATED BARRIERS TO DISCHARGE:: None TRANSPORTATION:: Via private car with family at time of discharge. PLAN:: Leonard is being treated with IV abx due to sepsis and positive blood cultures. Anticipate he will be discharged home when medically ready per provider. He will have an ECHO on Thursday and continued monitoring in the ICU. Anticipate no additional services at time of discharge, CM will contact [facility] to review admission and provide updates. CM to continue to provide support to patient discharge planning.
[2019-06-12] MEDS: Enoxaparin 40 MG/0.4 ML SYR SC (21:13)
[2019-06-12] MEDS: Acetaminophen 500 MG TAB PO (21:15)
[2019-06-12] MEDS: diphenhydrAMINE 25 MG CAP PO (21:17)
[2019-06-13] VITALS (79 sets, daily range): BP systolic 106–157; BP diastolic 57–88; PULSE 64–122; RESP 20–34; TEMP 37–37.8; O2SAT 93–100
[2019-06-13] MEDS: PIPERACILLIN/TAZO 4.5 GM in Normal Saline 100 ML IVPB ×3 (01:44→19:30)
[2019-06-13 06:40] LABS: Lactate 0.9 mmol/L (0.6-1.4)
[2019-06-13 06:41] LABS: Abs Immature Grans 0.01 k/cumm (0.0-0.09); Absolute Basophil Count 0.01 k/cumm (0.0-0.2); Absolute Eosinophil Count 0.03 k/cumm (0.0-0.7); Absolute Lymphocyte Count 0.47 k/cumm (1.2-3.4); Absolute Monocyte Count 0.41 k/cumm (0.11-0.7); Basophils % 0.1; Eosinophils % 0.4; HCT 37.9 % (40.0-50.0); HGB 12.5 g/dL (13.5-17.5); Immature Grans % 0.1 %; Lymphocytes % 6.2; Mean Corpuscular Hemoglobin 32.8 pg (27.0-33.0); Mean Corpuscular Volume 99.5 fL (80-95); Mean Platelet Volume 12.9 fL (8.0-11.0); Monocytes % 5.4; Neutrophils % 87.8; Platelet Count 101 x1000/uL (130-400); RBC 3.81 m/cumm (4.50-6.00); RBC Distribution Width 13.2 % (11.8-14.1); White Blood Cell Count 7.53 k/cumm (4.4-10.8)
[2019-06-13 06:54] LABS: Absolute Neutrophil Count 6.61 k/cumm (1.2-6.7)
[2019-06-13 07:01] LABS: ALT 28 U/L (16-63); AST 37 U/L (15-37); Albumin 2.6 g/dL (3.4-5.0); Alkaline Phosphatase 73 U/L (46-116); Anion Gap 3.7 mmol/L (3-11); BUN 24 mg/dL (7-18); Bilirubin, Direct 0.28 mg/dL (0.00-0.20); Bilirubin, Total 0.8 mg/dL (0.2-1.0); C-Reactive Protein 6.75 mg/dL (0.0-0.3); CO2 24.3 mmol/L (21.0-32.0); CREATININE 0.96 mg/dL (0.70-1.30); Calcium 8.5 mg/dL (8.5-10.1); Chloride 98 mmol/L (98-107); Glucose 114 mg/dL (74-106); Magnesium 2.3 mg/dL (1.8-2.4); Potassium 3.4 mmol/L (3.5-5.1); Sodium 126 mmol/L (136-145); Total Protein 5.9 g/dL (6.4-8.2)
--- NOTE | 2019-06-13 07:17 | POCOE_ITS ---
Date of service: 06/13/19 Time of Service: 07:18 History of Present Illness History of Present Illness Chief Complaint: concern of cellulitis right foot Narrative: 83-year-old male, seen in the ICU who was admitted through the ER with sepsis is seen at bedside, resting comfortably. He indicates he is feeling much better since his admission. He has no complaints of pain in either foot at this time. He does indicate that he had a history of cellulitis in his left leg several years ago and he recalls bumping his right foot into the foot of the bed remotely. I been asked to evaluate his lower extremities for potential sources of infection . [facility] Medical History Atrial fibrillation (Chronic) H/O oral cancer (Acute) Surgical History History of radical neck dissection (Acute) History of submandibular gland removal (Acute) S/P partial glossectomy (Acute) S/P percutaneous endoscopic gastrostomy (PEG) tube placement (Acute) Social History Smoking/Tobacco Use Status: Former Tobacco Use Alcohol Intake: former Substance use type: does not use Do you feel safe at home: Yes Do you feel safe in your relationship?: Yes Exam Narrative Exam Narrative: Maryana is awake and alert and communicates effectively. Vascular exam: DP and PT pulses are manually palpable at the ankles graded plus 1 out of 4 bilaterally. No peripheral edema or is noted. Calves are soft to palpation. No findings of DVT. Capillary return in the digits is on the 5 seconds. Low-grade rubor is noted affecting the distal aspects of the right second and third toes with distal clavi chronic in nature are noted. No fluid accumulations were observed. No drainage noted. Dermatologic exam: Toenails are thickened, yellowed, dystrophic, hypertrophic with subungual debris noted consistent with chronic onychomycosis. Minimal periungual tenderness is noted and there is no active drainage. Spotty appearing tinea pedis noted bilaterally with webspace involvement although no fissuring is noted. No active signs of secondary bacterial infection observed. Reactive keratoses are noted affecting the medial aspect of both IPJ and first MPJ regions and distal tip of the right second and third toes without inflammation or drainage. Muscle groups of 5 out of 5 bilaterally. Normal tone and bulk noted. Skeletal exam was generally benign without joint inflammations or gross deformities observed. Small joint degenerative arthritis is noted. Neurologically He appears to have a low-grade peripheral neuropathy with diminished sensation primarily distally in both feet. Toes are downgoing. Impressions: No active signs of cellulitis either lower extremity Heloma durum distal tip right second and third toes Onychomycosis chronic Tinea pedis chronic Plan: Recommend topical application of antifungal to the skin structures for tinea pedis. I do recommend that he receive outpatient podiatric care for management of his chronic onychomycosis and tinea pedis infections. I did discuss the need for well fitting appropriate shoe gear. The keratotic formations he sustained is most likely due to ill fitting shoes. He does acknowledge that the boots that he routinely wears are snug and that he is unable to wiggle his toes when he wears them. All of his questions were answered in detail. Thank you for the consultation. Results Last Vital Signs Temp 37.5 C 06/13/19 03:21 Pulse 86 06/13/19 05:01 Resp 28 H 06/13/19 05:50 BP 119/64 06/13/19 05:01 Pulse Ox 95 06/13/19 05:50 Labs Result diagrams: 06/13/19 06:21 06/13/19 06:21 Labs: Laboratory Results - last 24 hr 06/12/19 06/12/19 06/12/19 07:06 07:06 07:06 WBC 14.50 H RBC 3.76 L Hgb 12.3 L D Hct 37.1 L MCV 98.7 H MCH 32.7 MCHC 33.2 RDW 13.0 Plt Count 119 L MPV 12.5 H Immature Gran % 0.2 Neutrophils % 92.9 Lymphocytes % 2.8 Monocytes % 4.0 Eosinophils % 0.0 Basophils % 0.1 Absolute Neutrophils 13.47 H Absolute Lymphocytes 0.41 L Absolute Monocytes 0.58 Absolute Eosinophils 0.00 Absolute Basophils 0.01 ESR Sodium 140 Potassium 4.1 Chloride 106 Carbon Dioxide 25.4 Anion Gap 8.6 BUN 34 H Creatinine 1.14 Estimated GFR/1.73 m2 >= 60.00 Glucose 118 H Lactate 1.2 Calcium 8.8 Magnesium Total Bilirubin 1.2 H Conjugated Bilirubin AST 31 ALT 23 Alkaline Phosphatase 71 C-Reactive Protein Total Protein 5.9 L Albumin 2.8 L Procalcitonin 8.7 06/12/19 06/12/19 06/13/19 07:06 07:06 06:21 WBC RBC Hgb Hct MCV MCH MCHC RDW Plt Count MPV Immature Gran % Neutrophils % Lymphocytes % Monocytes % Eosinophils % Basophils % Absolute Neutrophils Absolute Lymphocytes Absolute Monocytes Absolute Eosinophils Absolute Basophils ESR 24 H Sodium 126 L D Potassium 3.4 L Chloride 98 Carbon Dioxide 24.3 Anion Gap 3.7 BUN 24 H D Creatinine 0.96 Estimated GFR/1.73 m2 >= 60.00 Glucose 114 H Lactate Calcium 8.5 Magnesium 1.7 L 2.3 Total Bilirubin 0.8 Conjugated Bilirubin 0.28 H AST 37 ALT 28 Alkaline Phosphatase 73 C-Reactive Protein 6.93 H 6.75 H Total Protein 5.9 L Albumin 2.6 L Procalcitonin 06/13/19 06/13/19 06:21 06:21 WBC 7.53 D RBC 3.81 L Hgb 12.5 L Hct 37.9 L MCV 99.5 H MCH 32.8 MCHC 33.0 RDW 13.2 Plt Count 101 L MPV 12.9 H Immature Gran % 0.1 Neutrophils % 87.8 Lymphocytes % 6.2 Monocytes % 5.4 Eosinophils % 0.4 Basophils % 0.1 Absolute Neutrophils 6.61 Absolute Lymphocytes 0.47 L Absolute Monocytes 0.41 Absolute Eosinophils 0.03 Absolute Basophils 0.01 ESR Sodium Potassium Chloride Carbon Dioxide Anion Gap BUN Creatinine Estimated GFR/1.73 m2 Glucose Lactate 0.9 Calcium Magnesium Total Bilirubin Conjugated Bilirubin AST ALT Alkaline Phosphatase C-Reactive Protein Total Protein Albumin Procalcitonin
[2019-06-13 07:33] LABS: Procalcitonin 6.2 ng/mL
[2019-06-13] MEDS: Ketoconazole 2% CREAM 15 GM TUBE TP (09:07)
[2019-06-13] MEDS: Potassium Chloride Liquid 20 MEQ PKT 40 MEQ UD (09:08)
--- NOTE | 2019-06-13 10:00 | IN_ITS ---
Date of service: 06/13/19 Time of Service: 10:00 PT Notes Visit Reasons: FEVER OF UNKNOWN ORIGIN Physical Therapy Inpatient Initial Evaluation Date: 06/13/2018 Referring Doctor: Maria E Cyr MD PT Orders: PT CONSULT: Limited ability Precautions: Fall. Standard. Activity as tolerated. Patient Profile/Admitting Diagnosis: Patient is a an 83-year-old male patient who presented to the ED on 06/11/2019 with chief complaints of shaking chills, rigors, and confusion. 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 PMHX: Medical History (Updated 06/12/19 @ 02:26 by Vasiliy Lopez) Atrial fibrillation (Chronic) H/O oral cancer (Acute) Surgical History (Updated 06/12/19 @ 02:06 by Vasiliy Lopez) History of radical neck dissection (Acute) History of submandibular gland removal (Acute) S/P partial glossectomy (Acute) Social History/Home Situation: Patient lives with in a 2 floor house with 4 steps to enter, rails on both sides. He is independent with all aspects of ADLs without the need for an assistive ambulatory device nor adaptive equipment prior to admission. Equipment Owned/DME: None Subjective: Patient is agreeable to a PT consult. He stated that he previously had radiation and chemotherapy in 2018 for his oral and throat cancer. He feels significantly better today compared to the day of admission. Patient denies headache, chest pain, and dizziness throughout PT session. Objective: General Observation: Telemetry monitoring in place. IV access in the left UE. Mental Status: Alert and oriented x is in 4 Pain: 0/10 Vital Signs: Heart rate during ambulation activity reached as high as 130 bpm. ROM: Right Upper Extremity: Shoulder Flexion WFL. Shoulder abduction WFL. Elbow flexion WFL. Wrist flexion WFL. Opening and closing of hand WFL. Left Upper Extremity: Shoulder Flexion WFL. Shoulder abduction WFL. Elbow flexion WFL. Wrist flexion WFL. Opening and closing of hand WFL. Right Lower Extremity: Hip flexion WFL. Hip abduction WFL. Knee flexion WFL. Ankle dorsiflexion WFL. Ankle plantarflexion WFL. Left Lower Extremity: Hip flexion WFL. Hip abduction WFL. Knee flexion WFL. Ankle dorsiflexion WFL. Ankle plantarflexion WFL. Strength: Right Upper Extremity: Shoulder flexors 5/5. Shoulder abductors 5/5. Elbow flexors 5/5. Elbow extensors 5/5. 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 Left Upper Extremity: Shoulder flexors 5/5. Shoulder abductors 5/5. Elbow flexors 5/5. Elbow extensors 5/5. 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 Right Lower Extremity: Hip flexors 5/5. Hip abductors 5/5. Knee flexors 5/5. Knee extensors 5/5. Ankle dorsiflexors 5/5. Ankle plantarflexors 5/5. Left Lower Extremity:Hip flexors 5/5. Hip abductors 5/5. Knee flexors 5/5. Knee extensors 5/5. Ankle dorsiflexors 5/5. Ankle plantarflexors 5/5. Sensation: Intact as to pain and pressure on bilateral lower extremities. Bed Mobility/Transfers: I did help him Sit to supine SBA Sit to stand SBA Stand to sit SBA Bed to chair SBA Chair to bed SBA Gait: Patient tolerated level surface ambulation of up to 80 feet using a front wheeled walker with FWB and CGA of PT and wheelchair follow of student PT. Patient denies headache, chest pain, and dizziness throughout gait activity but did request to sit down. He reported feeling woozy while resting in chair and was agreeable to lying back down in bed to rest. Gait pattern is unremarkable although patient did demonstrate some reduction in gait velocity due to not completely feeling well towards the end. Balance: Static Sitting: Normal Dynamic Sitting: Normal Static Standing: Fair Dynamic Standing: Fair Special Tests: Mobility Limitations Standardized Measure [facility]-P[facility] 6 clicks Basic Mobility Inpatient Short Form: Raw Score: 22 CMS Score: 21% deficit Informed Consent/Education: Patient instructed in purpose of PT consult and plan of care. Assessment: Patient is a an 83-year-old male patient who presented to the ED on 06/11/2019 with chief complaints of shaking chills, rigors, and confusion. 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 Patient presents with clinical signs and symptoms consistent with current/admitting diagnoses that have resulted to mobility limitations and gait instability as demonstrated by the following impairment level findings: 1. Impaired standing balance 2. Impaired activity tolerance Impairments are contributing to the following functional limitations: 1. Dependent bed mobility skills 2. Increased dependence with transfers 3. Inability to safely ambulate without assistive device and physical assistance 4. Increase completion time for mobility ADL performance 5. Increased fall risk 6. Inability to negotiate steps alone safely Patient is [place] a 23249 moderate complexity based on the following: History: Patient is an 83-year-old with past medical history, impairment level findings, functional limitations, and [place] [facility] CMS deficit score of 21% Examination: Demonstrable impairment in strength, balance, and range of motion with underlying impairments and functional limitations as documented above Presentation: Evolving Decision Makin moderate complexity Goals: Goals X1 week 1. Supine-Sit independent 2. Sit-Supine independent 3. Sit-Stand independent 4. Stand-Sit independent 5. Bed-Chair independent 6. Chair-Bed independent 7. Independent gait on level surface with use of least restrictive device for at least 300 feet without report of pain nor dyspnea 8. Independent stair negotiation while holding onto bilateral rails for at least 5 steps without report of pain nor dyspnea 9. Independent with home exercise program 10. Good static and dynamic standing balance/tolerance Plan of Care/Treatment Plan: 1-2x/day, 7 days/week x 1 week. Plan of care has been reviewed with the CERTIFIED MEDICINE AIDE providing the service under Physical Therapy direction. Initiate Physical Therapy intervention for strengthening, bed mobility, transfers, gait, stairs, balance training, use of assistive device. DISCHARGE RECOMMENDATIONS: Patient will benefit from home health PT services in order to progress mobility level using least restrictive assistive ambulatory device, assess home safety, identify additional equipment needs, and establish a functional maintenance program that will increase ability of patient to remain at home. TREATMENT CODE/TIME: 35717 x 25 minutes beginning at 10:00 AM. Thank you very much for this referral. Anu Anna PT, DPT, CLT [facility] [place], [place]
--- NOTE | 2019-06-13 10:30 | DI.US_ITS ---
APPROVED REPORT EXAM: Comprehensive 2D, Doppler, and color-flow Echocardiogram Patient Location: In-Patient Escalator Service Mechanic: Jocelyn Armstrong RDCS (AE) Indications: sepsis r/o endocarditis Conclusion Left Ventricle : The left ventricle is normal size. There is normal left ventricular wall thickness. Left ventricular systolic function is normal. There is normal LV segmental wall motion. The left teresa tricular diastolic function is normal. LVEF is estiamted to be 55-60%. Right Ventricle : Right ventricle appears slightly enlarged. The right ventricular systolic function is normal. Atria : The left atrium size is normal. The right atrium size is normal. Aortic Valve : Aortic valve is trileaflet. Trace to mild aortic regurgitation. There is no aortic lowell vular stenosis. Mitral Valve : Mitral valve leaflets are thickened. Mild to moderate mitral regurgitation. Normal wyatt ral valve excursion. Tricuspid Valve : Tricuspid valve leaflets are thickened but open well. Moderate tricuspid regurgitat ion. Pulmonic Valve : Pulmonic valve is not well visualized. Great Vessels : The IVC is dilated. Estimated RVSP is 35-40 mmHg. There are no vegetations detected though endocarditis cannot be entirely ruled out given the surface images. Is no prior echocardiogram available for comparison. Wall motion Left Ventricle The left ventricle is normal size. Left ventricular systolic function is normal. There is normal left ventricular wall thickness. There is normal LV segmental wall motion. The left ventricular diastolic function is normal. LVEF is estiamted to be 55-60%. Right Ventricle Right ventricle appears slightly enlarged. The right ventricular systolic function is normal. Atria The left atrium size is normal. The right atrium size is normal. Aortic Valve Aortic valve is trileaflet. There is no aortic valvular stenosis. Trace to mild aortic regurgitation. Mitral Valve Mitral valve leaflets are thickened. Normal mitral valve excursion. Mild to moderate mitral regurgita tion. Tricuspid Valve Tricuspid valve leaflets are thickened but open well. Moderate tricuspid regurgitation. Pulmonic Valve Pulmonic valve is not well visualized. Great Vessels The aortic root size is normal. The ascending aorta size is normal. The IVC is dilated. Estimated RVS P is 35-40 mmHg. Pericardium Small posterior pericardial effusion. 2D Dimensions IVSd 1.00 cm M: 0.6-1.2 LV EDV A2C 68.80 mL PWd 1.05 cm M: 0.6 - 1.2 LV EDV A4C 37.20 mL LVDd 4.40 cm M: 4.2 - 5.8 LA Volume Index A4C 11.37 mL/m2 LVDs 3.25 cm M: 2.5 - 4.0 LA Area A4C 11.75 cm2 Aortic Root 3.45 cm M: 3.1 - 3.7 EF AP4 55.65 % RVID Base (AP4) 3.80 cm (M/F) 2.5-4.1 EF AP2 61.48 % RA Area A4C 25.53 cm2 EF BP 60.31 % LVOT 1.90 cm (M/F) 1.5-2.5 Ascending Aorta 3.32 cm M: 2.6 - 3.4 LVEF (Teich) 51.03 % LVEF (Ventura's) 60.31 % M: 52 - 72 LV Volume 48.08 mL M: 62 - 150 LV Volume Index 23.68 mL/m2 M: 34 - 74 FS 25.85 % LV Diastology MED E' 0.11 (>0.07 m/s) LV E/e MED 10.45 (<14) LAT E' 0.14 (>0.1 m/s) LV E/e LAT 8.60 (<14) Aortic Valve LVOT Area 2.94 cm2 LVOT Vmax 0.59 m/s LVOT Mean Manuel. 0.45 m/s LVOT Peak Gr. 1.4 mmHg AoV Area Vmax 0.00 m/s LVOT Mean Gr. 0.9 mmHg AoV Area/ BSA (Vmax) 0.84 cm2/m2 LVOT VTI 0.100 m ERIC Mean Manuel. 0.00 m/s AoV Vmax 1.01 (0.5-1.3 m/s) ERIC Mean Manuel. Index 0.88 cm2/m2 AoV Mean Manuel. 0.74 m/s AoV Peak Grad 4.1 mmHg AoV Mean Grad 2.4 (<5 mmHg) AoV VTI 0.154 (0.18-0.25 m) AoV Area VTI 2.12 (2.5-4.5 cm2) AoV Area/ BSA (VTI) 1.04 cm/m2 Mitral Valve MV E Max Manuel. 1.18 (0.4-1.3 m/s) Pulmonary Valve PV Peak Velocity 0.66 (0.5-1.5 m/s) RVOT Peak Gr. 1.49 mmHg RVOT Peak Manuel. 0.61 m/s RVOT Mean Gr. 0.90 mmHg RVOT VTI 0.10 m Tricuspid Valve TR P. Velocity 2.55 m/s TV Regurg Vmax 2.55 m/s RAP Estimate 15.00 mmHg RVSP 40.98 mmHg TR P. Gradient 25.95 mmHg
[2019-06-13] MEDS: Normal Saline Flush 10 ML SYR IVP ×2 (10:32→15:52)
--- NOTE | 2019-06-13 10:42 | PDOC.CMPRO ---
- If Service Date Differs Date of service: 06/13/19 Time of Service: 10:43 Care Management Progress Note S/O:Leonard was sitting up in bed when CM met with him. His and another visitor were present. Leonard states that he is feeling better. His temperature has been better with a t-max of 37.8 today. Leonard has also undergone an Echocardiogram and a PT evaluation today. He states that he is very independent and receives no services. He does not anticipate needing any at discharge. A: Leonard is an 83 year old gentleman admitted with Fever on 06/11/2019 P:Leonard is being treated with IV antibiotics for sepsis. He has blood cultures which are positive for Group G strep. Anticipate he will be discharged home when medically ready. He has an ECHO today and will continue to be monitored in the ICU. Anticipate no additional services at time of discharge, CM contacted Claudia Simmons at the [facility] to review admission and provide updates. He does not have any advanced directives on file at the [facility]. CM to continue to provide support to patient, family and discharge planning. cc:
[2019-06-13] MEDS: levoFLOXacin 750 MG/150 ML BAG 100 MG IVPB (12:34)
[2019-06-13 13:25] LABS: BUN 22 mg/dL (7-18); CREATININE 0.96 mg/dL (0.70-1.30); Calcium 8.6 mg/dL (8.5-10.1); Chloride 108 mmol/L (98-107); Glucose 117 mg/dL (74-106); Potassium 4.3 mmol/L (3.5-5.1); Sodium 140 mmol/L (136-145)
[2019-06-13 13:30] LABS: Vancomycin, Trough 13.8 ug/mL (10.0-20.0)
--- NOTE | 2019-06-13 14:46 | PGE_ITS ---
Date of Service Date of service: 06/13/19 Time of Service: 14:46 Assessment and Plan Assessment and plan (1) Sepsis: Status: Acute Assessment and plan: Shock resolved. HR speeding up could be due to mounting fever. ? source - given reports of nasal congestion, sinusitis, aspiration PNA that did not show up on imaging. Less likely abdominal source, and Dr Salazar did not feel that the 2nd and 3rd digits of R foot looked infected. 2/4 blood culture bottles (same set) positive for Group G hemolytic strep. Repeat blood cultures done only 4-6 hours later are negative to date. Echo (TTE) negative to endocarditis. Though VINCE would be more definitive, in Mr Lares given his history of head and neck surgery, he might be a difficult VINCE, and there are definite risks to doing the procedure. Will monitor fever curve, CRP, procalcitonin. Given cx results, ok to d/c levofloxacin. Continue to monitor in the ICU. Qualifiers: Sepsis acute organ dysfunction status: without acute organ dysfunction Sepsis type: sepsis due to unspecified organism Qualified Code(s): A41.9 - Sepsis, unspecified organism (2) Atrial fibrillation: Status: Chronic Assessment and plan: Hr trending up - ?part of febrile response vs need for more volume. Offer tylenol, a bolus of 500 cc NS, and 1 dose of IV lopressor. (3) Hypomagnesemia: Status: Resolved Assessment and plan: recheck in am (4) Incidental lung nodule, > 3mm and < 8mm: Status: Acute Assessment and plan: Incidental finding on his CT scan. Will need outpatient PET scan if nodule remains post completion of antibiotics. (5) Dysphagia: Status: Acute Assessment and plan: NPO except thin water/coffee. Speech therapy consulted. (6) DVT prophylaxis: Status: Acute Assessment and plan: Lovenox (7) Discharge planning issues: Status: Acute Assessment and plan: Full code Palliative care consulted. Keep in ICU. Total Critical Care Time 40 minutes Subjective Subjective Interval history since last seen: Mr Lares states he feels like a wrung out dishrag. He feels like his nose is stuffed up with nasal congestion and that it is difficult to blow the secretions out. He states his cough is productive of yellowish thick sputum. Denies dizziness, chest pain, nausea, vomiting. HR has gone up to 130's this afternoon as the temperature is starting to come up. Exam Narrative Exam Narrative: General: Very pleasant elderly male, laying comfo rtably in bed, A&Ox3 HEENT: EOMI, MMM Heart: irregularly irregular rhythm, no m/r/g, tachycardic (130's) Lungs: scattered rhonchi Abdomen: soft, nontender, nondistended Extremities: no e/c/c BLE's. Objective Objective Clinical Data: Abnormal lab results 06/13/19 06/13/19 06/13/19 Range/Units 06:21 06:21 13:05 RBC 3.81 L (4.50-6.00) m/cumm Hgb 12.5 L (13.5-17.5) g/dL Hct 37.9 L (40.0-50.0) % MCV 99.5 H (80-95) fL Plt Count 101 L (130-400) x1000/uL MPV 12.9 H (8.0-11.0) fL Absolute Lymphocytes 0.47 L (1.2-3.4) k/cumm Sodium 126 L D (136-145) mmol/L Potassium 3.4 L (3.5-5.1) mmol/L Chloride 108 H (98-107) mmol/L BUN 24 H D 22 H (7-18) mg/dL Glucose 114 H 117 H (74-106) mg/dL Conjugated Bilirubin 0.28 H (0.00-0.20) mg/dL C-Reactive Protein 6.75 H (0.0-0.3) mg/dL Total Protein 5.9 L (6.4-8.2) g/dL Albumin 2.6 L (3.4-5.0) g/dL Vital Signs Temperature 37.8 C H 06/13/19 11:45 Temperature Source Temporal Artery Scan 06/13/19 11:45 Pulse 82 06/13/19 13:01 Pulse 114 H 06/13/19 13:01 Respiratory Rate 23 06/13/19 13:01 Respiratory Effort 06/13/19 11:45 Respiratory Depth Normal 06/13/19 11:45 Respiratory Pattern Tachypnea 06/13/19 11:45 Blood Pressure 133/71 06/13/19 13:01 Blood Pressure Mean 88 01/06/20 13:01 Blood Pressure Position Supine 06/13/19 11:45 Pulse Oximetry 96 06/13/19 11:45 Oxygen Delivery Method Room Air 06/13/19 11:45 Oxygen Flow Rate 0 06/13/19 11:45 Pain Level 0 06/13/19 11:45 Intake & Output 06/12/19 06/13/19 06/13/19 23:59 11:59 23:59 Intake Total 1247.667 / 6331.417 1225.000 / 1515.000 290 / 1515.000 Output Total 900 / 2175 1250 / 1250 Balance 347.667 / 4156.417 -25.000 / 265.000 290 / 265.000 Weight 84.5 kg Intake: IV 827.667 / 5437.417 1225.000 / 1475.000 250 / 1475.000 Oral 420 / 894 40 / 40 Output: Gastric Drainage 275 / 275 Lt Upper Quadrant 275 / 275 Urine 900 / 2175 975 / 975 Other: Urine Color Light Ellen Yellow Urine Appearance Clear Clear Urine Odor None None Comment vds in urinal Patient voids in urinal PRN. Stool Occult Blood Negative Stool Size Large Stool Characteristics Soft Brown Voiding Methods Urinal Urinal Laboratory Results WBC 7.53 k/cumm (4.4-10.8) D 06/13/19 06:21 RBC 3.81 m/cumm (4.50-6.00) L 06/13/19 06:21 Hgb 12.5 g/dL (13.5-17.5) L 06/13/19 06:21 Hct 37.9 % (40.0-50.0) L 06/13/19 06:21 MCV 99.5 fL (80-95) H 06/13/19 06:21 MCH 32.8 pg (27.0-33.0) 06/13/19 06:21 MCHC 33.0 g/dL (32.0-36.0) 06/13/19 06:21 RDW 13.2 % (11.8-14.1) 06/13/19 06:21 Plt Count 101 x1000/uL (130-400) L 06/13/19 06:21 MPV 12.9 fL (8.0-11.0) H 06/13/19 06:21 Immature Gran % 0.1 % 06/13/19 06:21 Neutrophils % 87.8 06/13/19 06:21 Lymphocytes % 6.2 06/13/19 06:21 Monocytes % 5.4 06/13/19 06:21 Eosinophils % 0.4 06/13/19 06:21 Basophils % 0.1 06/13/19 06:21 Absolute Neutrophils 6.61 k/cumm (1.2-6.7) 06/13/19 06:21 Absolute Lymphocytes 0.47 k/cumm (1.2-3.4) L 06/13/19 06:21 Absolute Monocytes 0.41 k/cumm (0.11-0.7) 06/13/19 06:21 Absolute Eosinophils 0.03 k/cumm (0.0-0.7) 06/13/19 06:21 Absolute Basophils 0.01 k/cumm (0.0-0.2) 06/13/19 06:21 ESR 24 mm/hr (1-20) H 06/12/19 07:06 Sodium 140 mmol/L (136-145) D 06/13/19 13:05 Potassium 4.3 mmol/L (3.5-5.1) D 06/13/19 13:05 Chloride 108 mmol/L (98-107) H 06/13/19 13:05 Carbon Dioxide 23.0 mmol/L (21.0-32.0) 06/13/19 13:05 Anion Gap 9.0 mmol/L (3-11) 06/13/19 13:05 BUN 22 mg/dL (7-18) H 06/13/19 13:05 Creatinine 0.96 mg/dL (0.70-1.30) 06/13/19 13:05 Estimated GFR/1.73 m2 >= 60.00 (mL/min/1.73m2) 06/13/19 13:05 Glucose 117 mg/dL (74-106) H 06/13/19 13:05 Lactate 0.9 mmol/L (0.6-1.4) 06/13/19 06:21 Calcium 8.6 mg/dL (8.5-10.1) 06/13/19 13:05 Magnesium 2.3 mg/dL (1.8-2.4) 06/13/19 06:21 Total Bilirubin 0.8 mg/dL (0.2-1.0) 06/13/19 06:21 Conjugated Bilirubin 0.28 mg/dL (0.00-0.20) H 06/13/19 06:21 AST 37 U/L (15-37) 06/13/19 06:21 ALT 28 U/L (16-63) 06/13/19 06:21 Alkaline Phosphatase 73 U/L (46-116) 06/13/19 06:21 Troponin I < 0.05 ng/Ml (<0.06) 06/11/19 15:00 C-Reactive Protein 6.75 mg/dL (0.0-0.3) H 06/13/19 06:21 Total Protein 5.9 g/dL (6.4-8.2) L 06/13/19 06:21 Albumin 2.6 g/dL (3.4-5.0) L 06/13/19 06:21 Procalcitonin 6.2 ng/mL 06/13/19 06:21 TSH 7.49 uIU/mL (0.36-3.74) H 06/11/19 15:00 Free T4 0.79 ng/dL (0.76-1.46) 06/11/19 15:00 Urine Color Yellow (Yellow) 06/11/19 16:38 Urine Clarity Clear (Clear) 06/11/19 16:38 Urine pH >= 9.0 (5-8) H 06/11/19 16:38 Ur Specific [place] 1.015 (1.005-1.025) 06/11/19 16:38 Urine Protein Negative mg/dL (Negative) 06/11/19 16:38 Urine Ketones 15 mg/dL (Negative) H 06/11/19 16:38 Urine Blood Negative (Negative) 06/11/19 16:38 Urine Nitrite Negative (Negative) 06/11/19 16:38 Urine Bilirubin Negative (Negative) 06/11/19 16:38 Urine Urobilinogen 0.2 EU/dL (Up TO 0.2) 06/11/19 16:38 Ur Leukocyte Esterase Negative (Negative) 06/11/19 16:38 Urine Glucose Negative mg/dL (Negative) 06/11/19 16:38 Vancomycin Trough 13.8 ug/mL (10.0-20.0) 06/13/19 13:05
--- NOTE | 2019-06-13 15:19 | NS.NUTBLAN_ITS ---
Date of service: 06/13/19 Time of Service: 15:19 Nutritional Consult ASSESSMENT: Met with Mr. Lares and his today. Has been NPO since 2018 s/p throat cancer surgery. Admitted with possible acute bacterial endocarditis. Receives Isosource 1.5 and administers 500 ml Isosource 1.5 TID, along with 500 ml free water TID. Current tube feeding/flushes provide 2250 kcal, 90 g protein and 2500 ml free water. Also, allowed water and coffee between feedings by mouth. reports tolerating tube feedings without issues and gets tube feeding delivered to house by [facility] [address]. BMI wnl for age, report that typical weight prior to throat cancer was 194 lbs, is about 10 lbs below usual weight. Estimated nutrient needs: [id number] kcal, 80-90 g protein and 2500 ml fluid. Current tube feeding regime meeting 100% nutrient/fluid needs and necessary due to severe dysphagia. 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 Reports that he often spits out his spit. NUTRITIONAL DIAGNOSIS: dysphagia requiring tube feeding via peg INTERVENTION: reviewed nutrient and fluid intake with current tube feeding order for adequacy MONITORING AND EVALUATION: weight trends, labs, tolerance to bolus feedings Time Spent in Nutritional Counseling and Treatment: 20 min face to face
[2019-06-13] MEDS: Normal Saline 500 ML IV (15:49)
[2019-06-13] MEDS: Metoprolol 5 MG/5 ML VIAL 2.5 MG IVP (15:52)
--- NOTE | 2019-06-13 16:14 | PT.INTREAT ---
Date of service: 06/13/19 Time of Service: 15:48 PT Notes Visit Reasons: FEVER OF UNKNOWN ORIGIN Inpatient Physical Therapy Treatment Note [facility] Date: 06/13/2019 PRECAUTIONS: Fall. Standard. Activity as tolerated. SUBJECTIVE: Patient reports being tired stating that he has not slept since Thursday. He denies any dizziness, okay chest pain, and headache throughout gait activity. OBJECTIVE: Telemetry monitoring continues to be in place. Mena catheter in place. IV in bilateral UE. PAIN: 0/10 BED MOBILITY/TRANSFERS Rolling L/R: SBA Supine-sit: SBA Sit-supine: SBA Sit-stand: SBA Stand-sit: SBA Bed-Chair: SBA Chair-bed: SBA GAIT Assistive Device: Front wheeled walker Weight bearing: FWB Assist: CGA Distance: 80 feet Deviation: Decreased gait velocity. No LOB noted. VITALS: Heart rate ranged between 101 bpm to 107 bpm. THEREX: Using 3 pound ankle weight on the left and 2 pound ankle weight on the right patient tolerated LAQs x 15 and hip flexion x10 while seated at edge of bed without undue focal T and complaints of pain. ASSESSMENT: Patient continues to demonstrate decreased activity tolerance and functional mobility decline requiring skilled physical therapy services to regain prior level of function in anticipation of going home with when medically cleared to do so. PLAN: Continue with PT POC as initially established. TREATMENT CODE/TIME: 9753 0 x 17 minutes beginning at 15:48 PM.
--- NOTE | 2019-06-13 16:25 | PT.INTREAT ---
Date of service: 06/13/19 PT Notes Visit Reasons: FEVER OF UNKNOWN ORIGIN
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
--- NOTE | 2019-06-13 17:52 | PCNE_ITS ---
Date of service: 06/13/19 Time of Service: 18:52 History of Present Illness History of Present Illness Chief Complaint: sepsis Narrative: Hayder is an 83-year-old florentino who has had head and neck cancer necessitating a PEG tube for the last year and a half. He has been drinking coffee and water, but unfortunately probably aspirating. A few days ago he presented to the hospital in sepsis with low blood pressure and fever. After resuscitation and testing, and antibiotics he has improved greatly. I am meeting with him today to discuss his goals of care surrounding his CODE STATUS, understanding that he needs to be n.p.o., is recently found pulmonary nodule, and discharged on anticoagulation due to his A. fib. 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 He understands the risk of a fib and stroke. (2) Sepsis: Status: Acute Assessment and plan: Improving COde Status: long discussion. We discussed what CPR was the upside's and the downsides. He was adamant that he did not want to be intubated for any length of time whatsoever. He was okay with chest compressions and shocks. Prior to our discussion I had talked briefly with his who had to leave. She knew that he did not want to be intubated for any length of time. She also stated that it was couriers choice with what ever he wanted. We did complete a C [facility] form. I gave him the original and copies will be in the EMR. We also discussed his pulmonary nodule which is being followed by his [facility] doctors. Qualifiers: Sepsis type: sepsis due to unspecified organism Sepsis acute organ dysfunction status: without acute organ dysfunction Qualified Code(s): A41.9 - Sepsis, unspecified organism (3) Head and neck cancer: Status: Acute Assessment and plan: [place] [facility] [place] It is unclear from the notes if there has been a recurrence. (4) Discharge planning issues: Status: Acute Assessment and plan: He is very concerned about the financial impact that this hospitalization will have on him. He has VA benefits and also Medicare but does not have a supplemental. I talked to care management about patient assistance program and perhaps whether he qualifies for Medicaid. They will look into this with him tomorrow. I have offered my services for decision making should he have additional questions and concerns. 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 He is getting around much better over the last few hours. He was able to toilet himself during our discussion. His was helping with his tube feedings when I came in. He has no fever. He remains short of breath. He does not have any chest pain. He does seem anxious at times with possible panic. He cannot identify any musc ular skeletal complaints. No difficulty with urination. No abdominal pain. [facility] Medical History Atrial fibrillation (Chronic) H/O oral cancer (Acute) Surgical History History of radical neck dissection (Acute) History of submandibular gland removal (Acute) S/P partial glossectomy (Acute) S/P percutaneous endoscopic gastrostomy (PEG) tube placement (Acute) Social History Smoking/Tobacco Use Status: Former Tobacco Use Alcohol Intake: former Substance use type: does not use Do you feel safe at home: Yes Do you feel safe in your relationship?: Yes Exam Const General: cooperative, comfortable, no acute distress and frail appearing Nutritional Appearance: average body habitus Orientation: oriented x3 HENMT Mouth: moist mucous membranes Teeth and gingiva: edentulous Eyes General: appearance normal, both eyes and all related structures (He has clear, intense eyes. Excellent eye contact) Neck Neck: other (Deformity from his previous surgery and radiation) Resp Effort & Inspection: normal respiratory effort and able to speak in complete sentences Other: At one point he became somewhat short of breath after going from commode back into bed. He admits to some anxiety Cardio Rate: regular rate GI Inspection: other (PEG tube in place) Psych Appearance: grossly normal Mental Status: mental status grossly normal Speech and Movement: speech clear Mood: congruent mood Affect: normal affect Attitude: cooperative Thought Process: normal Thought Content: normal Insight: insight good Judgment: judgment good Other: He is an intense man. Engaged in conversation. Thoughtful thinker. Does know how to think ahead. He states that he has a lot of [place] and that if all of his illness etc. ends and soon he is okay with that. He knows where he is going and is fine to be going to meet his maker. At the same time he wants to do reasonable things to to increase the quantity of his life as long as the quality is there. Results Last Vital Signs Temp 99.3 F 06/14/19 03:30 Pulse 76 06/14/19 04:01 Resp 28 H 06/14/19 04:01 BP 128/74 06/14/19 04:01 Pulse Ox 92 L 06/14/19 04:01 Labs Result diagrams: 06/14/19 06:25 06/14/19 06:25 Labs: Laboratory Results - last 24 hr 06/13/19 06/13/19 06/14/19 13:05 13:05 06:25 WBC RBC Hgb Hct MCV MCH MCHC RDW Plt Count MPV Immature Gran % Neutrophils % Lymphocytes % Monocytes % Eosinophils % Basophils % Absolute Neutrophils Absolute Lymphocytes Absolute Monocytes Absolute Eosinophils Absolute Basophils Sodium 140 D 139 Potassium 4.3 D 4.1 Chloride 108 H 108 H Carbon Dioxide 23.0 22.5 Anion Gap 9.0 8.5 BUN 22 H 21 H Creatinine 0.96 0.93 Estimated GFR/1.73 m2 >= 60.00 >= 60.00 Glucose 117 H 127 H Calcium 8.6 8.9 Magnesium 2.0 Vancomycin Trough 13.8 06/14/19 06:25 WBC 7.13 RBC 3.87 L Hgb 12.6 L Hct 38.0 L MCV 98.2 H MCH 32.6 MCHC 33.2 RDW 12.9 Plt Count 112 L MPV 12.8 H Immature Gran % 0.1 Neutrophils % 80.1 Lymphocytes % 8.4 Monocytes % 10.5 Eosinophils % 0.8 Basophils % 0.1 Absolute Neutrophils 5.70 Absolute Lymphocytes 0.60 L Absolute Monocytes 0.75 H Absolute Eosinophils 0.06 Absolute Basophils 0.01 Sodium Potassium Chloride Carbon Dioxide Anion Gap BUN Creatinine Estimated GFR/1.73 m2 Glucose Calcium Magnesium Vancomycin Trough
[2019-06-13] MEDS: Normal Saline 500 ML 30 ML IV (19:34)
[2019-06-13] MEDS: Gabapentin 100 MG CAP PO (19:34)
[2019-06-13] MEDS: Biotene Mouthwash 237 ML BTL MM (19:34)
[2019-06-13] MEDS: Sodium Chloride-Nasal SPRAY-ADULT 44 ML BTL NS (21:26)
[2019-06-13] MEDS: Enoxaparin 40 MG/0.4 ML SYR SC (23:02)
[2019-06-14] VITALS (37 sets, daily range): BP systolic 117–163; BP diastolic 55–96; PULSE 50–109; RESP 16–35; TEMP 36.5–37.4; O2SAT 92–98
[2019-06-14] MEDS: diphenhydrAMINE 25 MG CAP PO (01:40)
[2019-06-14] MEDS: Acetaminophen 500 MG TAB PO (01:41)
[2019-06-14] MEDS: Normal Saline Flush 10 ML SYR IVP ×2 (02:46→22:05)
[2019-06-14] MEDS: PIPERACILLIN/TAZO 4.5 GM in Normal Saline 100 ML IVPB ×2 (03:30→10:09)
[2019-06-14 06:49] LABS: Abs Immature Grans 0.01 k/cumm (0.0-0.09); Absolute Basophil Count 0.01 k/cumm (0.0-0.2); Absolute Eosinophil Count 0.06 k/cumm (0.0-0.7); Absolute Monocyte Count 0.75 k/cumm (0.11-0.7); Basophils % 0.1; Eosinophils % 0.8; HGB 12.6 g/dL (13.5-17.5); Immature Grans % 0.1 %; Lymphocytes % 8.4; Mean Corp. HGB Concentration 33.2 g/dL (32.0-36.0); Mean Corpuscular Hemoglobin 32.6 pg (27.0-33.0); Mean Corpuscular Volume 98.2 fL (80-95); Mean Platelet Volume 12.8 fL (8.0-11.0); Monocytes % 10.5; Neutrophils % 80.1; Platelet Count 112 x1000/uL (130-400); RBC 3.87 m/cumm (4.50-6.00); RBC Distribution Width 12.9 % (11.8-14.1); White Blood Cell Count 7.13 k/cumm (4.4-10.8)
[2019-06-14 07:00] LABS: Anion Gap 8.5 mmol/L (3-11); BUN 21 mg/dL (7-18); CO2 22.5 mmol/L (21.0-32.0); CREATININE 0.93 mg/dL (0.70-1.30); Calcium 8.9 mg/dL (8.5-10.1); Chloride 108 mmol/L (98-107); Glucose 127 mg/dL (74-106); Potassium 4.1 mmol/L (3.5-5.1); Sodium 139 mmol/L (136-145)
[2019-06-14 08:10] LABS: Procalcitonin 3.2 ng/mL
--- NOTE | 2019-06-14 08:17 | W.PM.PROGNOT ---
Date of Service Date of service: 06/14/19 Time of Service: 08:17 Assessment and Plan Assessment and plan (1) Sepsis: Status: Resolved Assessment and plan: Due to most likely sinusitis with Strep Dysgalactiae bacteremia, which is frequently associated with malignancy, pharyngitis, sinusitis. Shock resolved. HR better. Repeat Blood cultures negative. Switch to High dose IV ceftriaxone - d/c vanco/zosyn/levofloxacin. Ok to transfer to med surg floor. Qualifiers: Sepsis type: sepsis due to unspecified organism Sepsis acute organ dysfunction status: without acute organ dysfunction Qualified Code(s): A41.9 - Sepsis, unspecified organism (2) Sinusitis: Status: Acute Assessment and plan: As above. Continue saline nasal spray. Possible source of bacteremia (3) Atrial fibrillation: Status: Chronic Assessment and plan: Better with better control of infection. Would not add any additional agents. Not on anticoagulation by choice. (4) Hypomagnesemia: Status: Resolved Assessment and plan: recheck in am (5) Incidental lung nodule, > 3mm and < 8mm: Status: Acute Assessment and plan: Incidental finding on his CT scan. Will need outpatient PET scan if nodule remains post completion of antibiotics. (6) Dysphagia: Status: Acute Assessment and plan: NPO strictly with feeds per PEG. Needs outpatient modified swallow. (7) DVT prophylaxis: Status: Acute Assessment and plan: Lovenox (8) Discharge planning issues: Status: Acute Assessment and plan: Full code Transfer out of ICU Subjective Subjective Interval history since last seen: Afebrile overnight. States at about 10 pm last night he just all of a sudden felt better. He does not feel as congested today. Denies dizziness, chest pain, nausea. Nursing notes that he has not had much cough today. Remains in Afib - but heart rates at rest have been in the 70's. With activity (and he walked with PT twice) they have not gone up higher than 110's. Exam Narrative Exam Narrative: General: Very pleasant elderly male, laying comfortably in bed, A&Ox3, sounds less congested. Looks better. HEENT: EOMI, MMM Heart: irregularly irregular rhythm, no m/r/g Lungs: Quiet rales at B bases, mostly clear with cough. Abdomen: soft, nontender, nondistended Extremities: no e/c/c BLE's. Objective Objective Clinical Data: Abnormal lab results 06/13/19 06/14/19 06/14/19 Range/Units 13:05 06:25 06:25 RBC 3.87 L (4.50-6.00) m/cumm Hgb 12.6 L (13.5-17.5) g/dL Hct 38.0 L (40.0-50.0) % MCV 98.2 H (80-95) fL Plt Count 112 L (130-400) x1000/uL MPV 12.8 H (8.0-11.0) fL Absolute Lymphocytes 0.60 L (1.2-3.4) k/cumm Absolute Monocytes 0.75 H (0.11-0.7) k/cumm Chloride 108 H 108 H (98-107) mmol/L BUN 22 H 21 H (7-18) mg/dL Glucose 117 H 127 H (74-106) mg/dL Vital Signs Temperature 37.4 C 06/14/19 03:30 Temperature Source Temporal Artery Scan 06/13/19 21:06 Pulse 76 06/14/19 04:01 Pulse 100 H 06/14/19 04:01 Respiratory Rate 28 H 06/14/19 04:01 Respiratory Effort 06/14/19 03:30 Respiratory Depth Normal 06/14/19 03:30 Respiratory Pattern Tachypnea 06/14/19 03:30 Blood Pressure 128/74 06/14/19 04:01 Blood Pressure Mean 87 06/14/19 04:01 Blood Pressure Position Supine 06/13/19 23:50 Pulse Oximetry 92 L 06/14/19 04:01 Oxygen Delivery Method Room Air 06/13/19 21:06 Oxygen Flow Rate 0 06/13/19 21:06 Pain Level 0 06/14/19 03:30 Intake & Output 06/13/19 06/13/19 06/14/19 11:59 23:59 11:59 Intake Total 1225.000 / 2765.000 1540 / 2765.000 100 / 100 Output Total 1250 / 4500 3250 / 4500 700 / 700 Balance -25.000 / -1735.000 -1710 / -1735.000 -600 / -600 Weight 84.5 kg 85.7 kg Intake: IV 1225.000 / 2225.000 1000 / 2225.000 100 / 100 Oral 40 / 40 Intake, Tube Feeding Amount 500 / 500 Output: Gastric Drainage 275 / 1275 1000 / 1275 0 / 0 Lt Upper Quadrant 275 / 1275 1000 / 1275 0 / 0 Urine 975 / 2725 1750 / 2725 700 / 700 Stool 500 / 500 Output, Residual 0 / 0 Other: Urine Color Yellow Yellow Yellow Urine Appearance Clear Clear Clear Urine Odor None Normal Comment Patient voids in urinal PRN. Patient voids in urinal PRN. Patient voids while lying in ed to urinal Stool Occult Blood Negative Negative Stool Size Large Moderate Stool Characteristics Soft Liquid Brown Voiding Methods Urinal Urinal Urinal Laboratory Results WBC 7.13 k/cumm (4.4-10.8) 06/14/19 06:25 RBC 3.87 m/cumm (4.50-6.00) L 06/14/19 06:25 Hgb 12.6 g/dL (13.5-17.5) L 06/14/19 06:25 Hct 38.0 % (40.0-50.0) L 06/14/19 06:25 MCV 98.2 fL (80-95) H 06/14/19 06:25 MCH 32.6 pg (27.0-33.0) 06/14/19 06:25 MCHC 33.2 g/dL (32.0-36.0) 06/14/19 06:25 RDW 12.9 % (11.8-14.1) 06/14/19 06:25 Plt Count 112 x1000/uL (130-400) L 06/14/19 06:25 MPV 12.8 fL (8.0-11.0) H 06/14/19 06:25 Immature Gran % 0.1 % 06/14/19 06:25 Neutrophils % 80.1 06/14/19 06:25 Lymphocytes % 8.4 06/14/19 06:25 Monocytes % 10.5 06/14/19 06:25 Eosinophils % 0.8 06/14/19 06:25 Basophils % 0.1 06/14/19 06:25 Absolute Neutrophils 5.70 k/cumm (1.2-6.7) 06/14/19 06:25 Absolute Lymphocytes 0.60 k/cumm (1.2-3.4) L 06/14/19 06:25 Absolute Monocytes 0.75 k/cumm (0.11-0.7) H 06/14/19 06:25 Absolute Eosinophils 0.06 k/cumm (0.0-0.7) 06/14/19 06:25 Absolute Basophils 0.01 k/cumm (0.0-0.2) 06/14/19 06:25 ESR 24 mm/hr (1-20) H 06/12/19 07:06 Sodium 139 mmol/L (136-145) 06/14/19 06:25 Potassium 4.1 mmol/L (3.5-5.1) 06/14/19 06:25 Chloride 108 mmol/L (98-107) H 06/14/19 06:25 Carbon Dioxide 22.5 mmol/L (21.0-32.0) 06/14/19 06:25 Anion Gap 8.5 mmol/L (3-11) 06/14/19 06:25 BUN 21 mg/dL (7-18) H 06/14/19 06:25 Creatinine 0.93 mg/dL (0.70-1.30) 06/14/19 06:25 Estimated GFR/1.73 m2 >= 60.00 (mL/min/1.73m2) 06/14/19 06:25 Glucose 127 mg/dL (74-106) H 06/14/19 06:25 Lactate 0.9 mmol/L (0.6-1.4) 06/13/19 06:21 Calcium 8.9 mg/dL (8.5-10.1) 06/14/19 06:25 Magnesium 2.0 mg/dL (1.8-2.4) 06/14/19 06:25 Total Bilirubin 0.8 mg/dL (0.2-1.0) 06/13/19 06:21 Conjugated Bilirubin 0.28 mg/dL (0.00-0.20) H 06/13/19 06:21 AST 37 U/L (15-37) 06/13/19 06:21 ALT 28 U/L (16-63) 06/13/19 06:21 Alkaline Phosphatase 73 U/L (46-116) 06/13/19 06:21 Troponin I < 0.05 ng/Ml (<0.06) 06/11/19 15:00 C-Reactive Protein 6.75 mg/dL (0.0-0.3) H 06/13/19 06:21 Total Protein 5.9 g/dL (6.4-8.2) L 06/13/19 06:21 Albumin 2.6 g/dL (3.4-5.0) L 06/13/19 06:21 Procalcitonin 3.2 ng/mL 06/14/19 06:25 TSH 7.49 uIU/mL (0.36-3.74) H 06/11/19 15:00 Free T4 0.79 ng/dL (0.76-1.46) 06/11/19 15:00 Urine Color Yellow (Yellow) 06/11/19 16:38 Urine Clarity Clear (Clear) 06/11/19 16:38 Urine pH >= 9.0 (5-8) H 06/11/19 16:38 Ur Specific [place] 1.015 (1.005-1.025) 06/11/19 16:38 Urine Protein Negative mg/dL (Negative) 06/11/19 16:38 Urine Ketones 15 mg/dL (Negative) H 06/11/19 16:38 Urine Blood Negative (Negative) 06/11/19 16:38 Urine Nitrite Negative (Negative) 06/11/19 16:38 Urine Bilirubin Negative (Negative) 06/11/19 16:38 Urine Urobilinogen 0.2 EU/dL (Up TO 0.2) 06/11/19 16:38 Ur Leukocyte Esterase Negative (Negative) 06/11/19 16:38 Urine Glucose Negative mg/dL (Negative) 06/11/19 16:38 Vancomycin Trough 13.8 ug/mL (10.0-20.0) 06/13/19 13:05
[2019-06-14] MEDS: Ketoconazole 2% CREAM 15 GM TUBE TP (08:54)
[2019-06-14] MEDS: Sodium Chloride-Nasal SPRAY-ADULT 44 ML BTL NS ×4 (08:54→20:58)
[2019-06-14] MEDS: Gabapentin 100 MG CAP PO ×2 (08:54→20:57)
[2019-06-14] MEDS: Biotene Mouthwash 237 ML BTL MM (08:56)
[2019-06-14] MEDS: Aspirin 81 MG CHEW 324 MG PO (10:15)
--- NOTE | 2019-06-14 11:13 | PTTR_ITS ---
Date of service: 06/14/19 Time of Service: 11:13 PT Notes Visit Reasons: FEVER OF UNKNOWN ORIGIN Inpatient Physical Therapy Treatment Note [facility] Date: 06/14/2019 PRECAUTIONS: Fall. Standard. Activity as tolerated. SUBJECTIVE: Patient states that he is feeling much better today after starting antibiotics and being told he has an infection. He reports that he slept better last night. OBJECTIVE: Telemetry monitoring in place. PAIN: 0/10 BED MOBILITY/TRANSFERS Supine-sit: SBA Sit-supine: SBA Sit-stand: SBA Stand-sit: SBA Bed-Chair: SBA Chair-bed: SBA GAIT Assistive Device: FWW Weight bearing: FWB Assist: SBA by PT with wheelchair follow for first 90 feet of ambulation and SBA of student PT with IV and telemonitoring Distance: 90 feet +120 feet with two standing rest breaks due to increased HR to 131 bpm. Deviation and patient complaints: No complaints of SOB. No LOB. THEREX: LAQ x15 with 3lb on R, 2lb on L Seated hip flexion x 15 with 3lb on R, 2lb on L Standing hip flexion x 15 with 3lb on R, 2lb on L (patient required two minutes rest following exercise due to increased HR STAIRS: Patient was able to complete two laps of stairs: 6 4-inch steps and 4 6- inch steps using bilateral hand rails, intermittently required use of only one hand for stability. ASSESSMENT: Patient is beginning to show improvements in indepdnence with mobility performance and cardiovascular endurance as demonstrated by his increased walking distances and ability to negotiate stairs without complaints of increased fatigue. He continues to require the use of a FWW with ambulation and standing balance. PLAN: Continue with established POC TREATMENT CODE/TIME: 97519, 90167 x 27 minutes beginning at 11:13. Buddy Moore, SPT DPT [facility] With supervision of: Anu Anna, PT, DPT, CLT [facility] [place], [place]
--- NOTE | 2019-06-14 11:13 | CMPROGNOTE_ITS ---
- If Service Date Differs Date of service: 06/14/19 Time of Service: 11:13 Care Management Progress Note S/O:Loenard was sitting up in bed when CM met with him. He was very pleasant and engaged readily in conversation. Leonard shared an experience he had yesterday that he found upsetting. He stated that someone had come to see him yesterday to talk about Advanced Directives and he felt as though he must be closer to dying than he knew. CM reassured him that that was not the case and that the person was just trying to ensure that his wishes be honored. He said that he knows when he leaves this earth he knows where he will go and that he believes in God and will be at peace with his passing, whenever it happens. Leonard also talked about his home in [place] and how much he enjoys it, having spent most of his life in [place]. A: Leonard is an 83 year old gentleman admitted with Fever on 06/11/2019 P:Leonard is being treated with IV antibiotics for sepsis. He has blood cultures which are positive for Group G strep. Anticipate he will be discharged home when medically ready. He has an ECHO today and will continue to be monitored in the ICU. Anticipate no additional services at time of discharge, CM contacted Claudia Simmons at the [facility] to review admission and provide updates. He d oes not have any advanced directives on file at the [facility]. CM to continue to provide support to patient, family and discharge planning.
[2019-06-14] MEDS: cefTRIAXone 2 GM/50 ML BAG IVPB (12:06)
--- NOTE | 2019-06-14 13:51 | PT.INTREAT ---
Date of service: 06/14/19 Time of Service: 13:51 PT Notes Visit Reasons: FEVER OF UNKNOWN ORIGIN Inpatient Physical Therapy Treatment Note [facility] Date: 06/14/2019 PRECAUTIONS: Fall, activity as tolerated SUBJECTIVE: Richard states that he is very tired this afternoon, although is agreeable to participating in PT. OBJECTIVE: PAIN: No complaints of pain BED MOBILITY/TRANSFERS Sit-supine: I with HOB flat Sit-stand: S Stand-sit: S GAIT Assistive Device: No AD Weight bearing: Full Assist: CGA Distance: 50' + 20' x2 + 50' Deviation: Seated rest x2, occasional use of R handrail with gait training THEREX: Patient completed a lower extremity strengthening program, in a standing position, as per flow sheet. TOILETING: Patient toileted independently. ASSESSMENT: Patient tolerated session with complaints of increased fatigue with activity. Patient was able to tolerate standing exercises, although requires seated rest [facility] through. Patient would benefit from continued general conditioning as well as continued gait training with least restrictive device to work towards return to baseline level of function. PLAN: Continue with PTs POC TREATMENT CODE/TIME: 30 minutes; 20493, [id number]
[2019-06-14 14:37] LABS: C-Reactive Protein 3.75 mg/dL (0.0-0.3)
[2019-06-14] MEDS: Enoxaparin 40 MG/0.4 ML SYR SC (22:04)
--- NOTE | 2019-06-14 23:38 | NUR.NOTE ---
Nursing Note:19:00 Patient transferred from ICU to Room No: 227. He walked with the walker to the room. Vital signs are stable. No pain reported. See shift assessment for further details. This Nurse will continue to monitor.
[2019-06-15] VITALS (10 sets, daily range): BP systolic 124–167; BP diastolic 69–87; PULSE 71–119; RESP 16–20; TEMP 36.1–37; O2SAT 94–97
[2019-06-15 07:10] LABS: Absolute Basophil Count 0.02 k/cumm (0.0-0.2); Absolute Eosinophil Count 0.31 k/cumm (0.0-0.7); Absolute Monocyte Count 0.67 k/cumm (0.11-0.7); Basophils % 0.4; Eosinophils % 5.6; HCT 38.1 % (40.0-50.0); HGB 12.6 g/dL (13.5-17.5); Lymphocytes % 12.7; Mean Corp. HGB Concentration 33.1 g/dL (32.0-36.0); Mean Corpuscular Hemoglobin 32.6 pg (27.0-33.0); Mean Corpuscular Volume 98.7 fL (80-95); Mean Platelet Volume 13.1 fL (8.0-11.0); Monocytes % 12.2; Neutrophils % 69.1; Platelet Count 134 x1000/uL (130-400); RBC 3.86 m/cumm (4.50-6.00)
[2019-06-15 07:32] LABS: Anion Gap 10.4 mmol/L (3-11); BUN 19 mg/dL (7-18); C-Reactive Protein 2.84 mg/dL (0.0-0.3); CO2 23.6 mmol/L (21.0-32.0); CREATININE 0.77 mg/dL (0.70-1.30); Calcium 9.3 mg/dL (8.5-10.1); Chloride 107 mmol/L (98-107); Glucose 100 mg/dL (74-106); Magnesium 1.9 mg/dL (1.8-2.4); Potassium 4.2 mmol/L (3.5-5.1); Sodium 141 mmol/L (136-145)
[2019-06-15 07:50] LABS: Procalcitonin 1.8 ng/mL
[2019-06-15] MEDS: Normal Saline Flush 10 ML SYR IVP ×2 (08:12→20:01)
[2019-06-15] MEDS: Biotene Mouthwash 237 ML BTL MM ×2 (08:12→20:01)
[2019-06-15] MEDS: Gabapentin 100 MG CAP PO ×2 (08:12→20:00)
[2019-06-15] MEDS: Aspirin 81 MG CHEW 324 MG PO (08:12)
[2019-06-15] MEDS: Sodium Chloride-Nasal SPRAY-ADULT 44 ML BTL NS ×4 (08:12→20:01)
[2019-06-15] MEDS: Ketoconazole 2% CREAM 15 GM TUBE TP (08:21)
[2019-06-15] MEDS: cefTRIAXone 2 GM/50 ML BAG IVPB (11:16)
--- NOTE | 2019-06-15 12:05 | W.PM.PROGNOT ---
Date of Service Date of service: 06/15/19 Time of Service: 12:05 Assessment and Plan Assessment and plan (1) Sepsis: Status: Resolved Assessment and plan: Due to sinusitis with Strep Dysgalactiae bacteremia, which is frequently associated with malignancy, pharyngitis, sinusitis. Shock resolved. HR is worse today, but this does not seem to be corelating with progression of patient's illness - but rather with increase in activity. I feel comfortable starting a low dose of metoprolol Repeat Blood cultures negative. Continue high dose IV ceftriaxone. Will discuss duration of abx with ID later today. Qualifiers: Sepsis acute organ dysfunction status: without acute organ dysfunction Sepsis type: sepsis due to unspecified organism Qualified Code(s): A41.9 - Sepsis, unspecified organism (2) Sinusitis: Status: Acute Assessment and plan: As above. Continue saline nasal spray. Possible source of bacteremia (3) Atrial fibrillation: Status: Chronic Assessment and plan: Rates more rapid since 6:30 am today and especially high with exertion. Start low dose of metoprolol. Monitor on tele. Has prn IV lopressor. (4) Hypomagnesemia: Status: Resolved Assessment and plan: recheck in am (5) Incidental lung nodule, > 3mm and < 8mm: Status: Acute Assessment and plan: Incidental finding on his CT scan. Will need outpatient PET scan if nodule remains post completion of antibiotics. (6) Dysphagia: Status: Acute Assessment and plan: NPO strictly with feeds per PEG. Needs outpatient modified barium swallow. (7) DVT prophylaxis: Status: Acute Assessment and plan: Lovenox (8) Discharge planning issues: Status: Acute Assessment and plan: Full code Continues to require hospitalization Subjective Subjective Interval history since last seen: I rushed to evaluate the patient when I saw that his heart rate on telemetry was in 160's (Afib). He was walking with PT at that time and felt palpitations, but not dizziness. As soon as he sat down, HR went down to 110's with SBP's in 150's. Other than palpitations, he was asymptomatic, denying dizziness, chest pain, shortness of breath, nausea. He is feeling much better today. He especially remarks on how well his nose is breathing with the use of the saline nasal spray. Exam Narrative Exam Narrative: General: Very pleasant elderly male, seen walking in the hallway then sitting down in PT office, looks better than yesterday HEENT: EOMI, MMM Heart: irregularly irregular rhythm, only mildly tachycardic when sitting down Lungs: Diminished breath sounds B, no cough Abdomen: soft, nontender, nondistended Extremities: trace edema at B ankles, -c/c BLE's. Objective Objective Clinical Data: Abnormal lab results 06/14/19 06/15/19 06/15/19 Range/Units 06:25 06:20 06:20 RBC 3.86 L (4.50-6.00) m/cumm Hgb 12.6 L (13.5-17.5) g/dL Hct 38.1 L (40.0-50.0) % MCV 98.7 H (80-95) fL MPV 13.1 H (8.0-11.0) fL Absolute Lymphocytes 0.70 L (1.2-3.4) k/cumm BUN 19 H (7-18) mg/dL C-Reactive Protein 3.75 H 2.84 H (0.0-0.3) mg/dL Vital Signs Temperature 37 C 06/15/19 07:55 Temperature Source Tympanic 06/15/19 07:55 Pulse 87 06/15/19 07:55 Pulse Rhythm Irregular 06/15/19 09:12 Pulse 94 H 06/14/19 18:01 Respiratory Rate 20 06/15/19 07:55 Respiratory Effort Non-Labored 06/15/19 09:12 Respiratory Depth Normal 06/15/19 09:12 Respiratory Pattern Normal 06/15/19 09:12 Blood Pressure 157/78 H 06/15/19 07:55 Blood Pressure Mean 82 06/14/19 18:01 Blood Pressure Position Sitting 06/14/19 11:52 Pulse Oximetry 94 L 06/15/19 07:55 Oxygen Delivery Method Room Air 06/15/19 07:55 Oxygen Flow Rate 0 06/15/19 07:55 Pain Level 0 06/14/19 23:50 Intake & Output 06/14/19 06/15/19 06/15/19 23:59 11:59 23:59 Intake Total 649.167 / 1678.417 500 / 500 Output Total 1020 / 2390 Balance -370.833 / -711.583 500 / 500 Intake: IV 149.167 / 678.417 Intake, Tube Feeding Amount 500 / 1000 500 / 500 Output: Gastric Drainage 210 / 380 Lt Upper Quadrant 210 / 380 Urine 600 / 1300 Output, Residual 210 / 210 Other: Urine Color Yellow Urine Appearance Clear Urine Odor None Comment Pt stated that he voided into the toilet and flushed. Not seen by this Nurse. indpendant Voiding Methods Urinal Toilet Laboratory Results WBC 5.50 k/cumm (4.4-10.8) 06/15/19 06:20 RBC 3.86 m/cumm (4.50-6.00) L 06/15/19 06:20 Hgb 12.6 g/dL (13.5-17.5) L 06/15/19 06:20 Hct 38.1 % (40.0-50.0) L 06/15/19 06:20 MCV 98.7 fL (80-95) H 06/15/19 06:20 MCH 32.6 pg (27.0-33.0) 06/15/19 06:20 MCHC 33.1 g/dL (32.0-36.0) 06/15/19 06:20 RDW 13.0 % (11.8-14.1) 06/15/19 06:20 Plt Count 134 x1000/uL (130-400) 06/15/19 06:20 MPV 13.1 fL (8.0-11.0) H 06/15/19 06:20 Immature Gran % 0.0 % 06/15/19 06:20 Neutrophils % 69.1 06/15/19 06:20 Lymphocytes % 12.7 06/15/19 06:20 Monocytes % 12.2 06/15/19 06:20 Eosinophils % 5.6 06/15/19 06:20 Basophils % 0.4 06/15/19 06:20 Absolute Neutrophils 3.80 k/cumm (1.2-6.7) 06/15/19 06:20 Absolute Lymphocytes 0.70 k/cumm (1.2-3.4) L 06/15/19 06:20 Absolute Monocytes 0.67 k/cumm (0.11-0.7) 06/15/19 06:20 Absolute Eosinophils 0.31 k/cumm (0.0-0.7) 01/08/20 06:20 Absolute Basophils 0.02 k/cumm (0.0-0.2) 06/15/19 06:20 ESR 24 mm/hr (1-20) H 06/12/19 07:06 Sodium 141 mmol/L (136-145) 06/15/19 06:20 Potassium 4.2 mmol/L (3.5-5.1) 06/15/19 06:20 Chloride 107 mmol/L (98-107) 06/15/19 06:20 Carbon Dioxide 23.6 mmol/L (21.0-32.0) 06/15/19 06:20 Anion Gap 10.4 mmol/L (3-11) 06/15/19 06:20 BUN 19 mg/dL (7-18) H 06/15/19 06:20 Creatinine 0.77 mg/dL (0.70-1.30) 06/15/19 06:20 Estimated GFR/1.73 m2 >= 60.00 (mL/min/1.73m2) 06/15/19 06:20 Glucose 100 mg/dL (74-106) 06/15/19 06:20 Lactate 0.9 mmol/L (0.6-1.4) 06/13/19 06:21 Calcium 9.3 mg/dL (8.5-10.1) 06/15/19 06:20 Magnesium 1.9 mg/dL (1.8-2.4) 06/15/19 06:20 Total Bilirubin 0.8 mg/dL (0.2-1.0) 06/13/19 06:21 Conjugated Bilirubin 0.28 mg/dL (0.00-0.20) H 06/13/19 06:21 AST 37 U/L (15-37) 06/13/19 06:21 ALT 28 U/L (16-63) 06/13/19 06:21 Alkaline Phosphatase 73 U/L (46-116) 06/13/19 06:21 Troponin I < 0.05 ng/Ml (<0.06) 06/11/19 15:00 C-Reactive Protein 2.84 mg/dL (0.0-0.3) H 06/15/19 06:20 Total Protein 5.9 g/dL (6.4-8.2) L 06/13/19 06:21 Albumin 2.6 g/dL (3.4-5.0) L 06/13/19 06:21 Procalcitonin 1.8 ng/mL 06/15/19 06:20 TSH 7.49 uIU/mL (0.36-3.74) H 06/11/19 15:00 Free T4 0.79 ng/dL (0.76-1.46) 06/11/19 15:00 Urine Color Yellow (Yellow) 06/11/19 16:38 Urine Clarity Clear (Clear) 06/11/19 16:38 Urine pH >= 9.0 (5-8) H 06/11/19 16:38 Ur Specific [place] 1.015 (1.005-1.025) 06/11/19 16:38 Urine Protein Negative mg/dL (Negative) 06/11/19 16:38 Urine Ketones 15 mg/dL (Negative) H 06/11/19 16:38 Urine Blood Negative (Negative) 06/11/19 16:38 Urine Nitrite Negative (Negative) 06/11/19 16:38 Urine Bilirubin Negative (Negative) 06/11/19 16:38 Urine Urobilinogen 0.2 EU/dL (Up TO 0.2) 06/11/19 16:38 Ur Leukocyte Esterase Negative (Negative) 06/11/19 16:38 Urine Glucose Negative mg/dL (Negative) 06/11/19 16:38 Vancomycin Trough 13.8 ug/mL (10.0-20.0) 06/13/19 13:05
[2019-06-15] MEDS: Metoprolol 12.5 MG TAB PO ×2 (12:23→20:00)
--- NOTE | 2019-06-15 13:01 | PTTR_ITS ---
Date of service: 06/15/19 Time of Service: 11:40 PT Notes Visit Reasons: FEVER OF UNKNOWN ORIGIN Inpatient Physical Therapy Treatment Note [facility] Date: 06/15/2019 PRECAUTIONS: Fall. Standard. Activity as tolerated. SUBJECTIVE: Pt reports that he is feeling much better. Notes he has been able to breathe a lot better through his nose. States that he was able to sleep throughout the night. Reports that he has been walking around the room without an assistive device with no difficulty. Prior to beginning the pt's afternoon, session he denies any significant changes in symptoms since the morning session. He denies pain, SOB, chest pain, dizziness. OBJECTIVE: Pt on telemonitor and IV PAIN: 0/10 BED MOBILITY/TRANSFERS Sit-stand: SBA Stand-sit: SBA Bed-Chair: SBA Chair-bed: SBA GAIT Assistive Device: Four-wheeled walker Weight bearing: FWB Assist: SBA by student PT with follow behind from PT with IV pole. Distance: 150 feet + 150 feet + 25 feet. After first 150 feet of ambulation the pt required a standing rest break due to complaints of mild fatigue. No complaints of SOB, chest pain, dizziness. He completed another 150 feet and required sitting rest break due to increased HR of 160 bpm. Pt denied SOB, chest pain, headache, dizziness, but reports he could feel increase in HR. With rest HR decreased to 110-120 bpm. Per MD, will discontinue exercise until medication has been prescribed to manage HR. THEREX: During the patients afternoon treatment session, he was able to complete all therapeutic exercises, including seated hip flexion, standing hip flexion, standing hip abduction, mini squats, heel raises, LAQ, and seated toe raises with HR ranging from 88 bpm to 99 bpm. No complaints of fatigue, SOB, dizziness ASSESSMENT: Pt demonstrated improved endurance during today?s treatment session through increased walking distances and pt report of improved respiratory function. Demonstrated improved control and mobility using four-wheeled walker and required fewer rest breaks. Treatment session was discontinued due to tachycardia with exertion. Will continue with treatment following administration of medication for management of HR. Following administration of beta blockers, the pt was able to complete therapeutic exercises during his afternoon session, without significant increases in HR. He would continue to benefit from skilled physical therapy at this time. PLAN: Continue with established POC. Continue with and discharge with four- wheeled walker for ambulation. TREATMENT CODE/TIME: 07020 x 35 minutes beginning at 11:40. 28718 x 15 minutes beginning at 15:40. DHARMESH Lindsey Doctor of Physical Therapy Student [facility] Supervised by Anu Anna, PT, DPT
--- NOTE | 2019-06-15 16:02 | PDOC.CMPRO ---
- If Service Date Differs Date of service: 06/15/19 Time of Service: 16:02 Care Management Progress Note S/O:No change in the plan today for Leonard, he was able to ambulate in the halls with PT and did well with FWW, PT to assess if he needs a walker at home. FWW would need to be coordinated through patients choice of DME agency or local retail. A: Leonard is an 83 year old gentleman admitted with Fever on 06/11/2019 P:Leonard is being treated with IV antibiotics for sepsis. He has blood cultures which are positive for Group G strep. Anticipate he will be discharged home when medically ready. Anticipate no additional services at time of discharge, [facility] when patient is discharged, he will need a [facility]. CM to continue to provide support to patient, family and discharge planning.
[2019-06-15] MEDS: Acetaminophen 325 MG TAB PO (22:05)
[2019-06-15] MEDS: Enoxaparin 40 MG/0.4 ML SYR SC (22:19)
[2019-06-16] VITALS (8 sets, daily range): BP systolic 119–143; BP diastolic 74–85; PULSE 68–98; RESP 18–20; TEMP 36.4–36.9; O2SAT 96–97
[2019-06-16 07:13] LABS: Absolute Basophil Count 0.02 k/cumm (0.0-0.2); Absolute Eosinophil Count 0.37 k/cumm (0.0-0.7); Absolute Lymphocyte Count 0.66 k/cumm (1.2-3.4); Absolute Neutrophil Count 3.25 k/cumm (1.2-6.7); Basophils % 0.4; Eosinophils % 7.6; HCT 37.9 % (40.0-50.0); HGB 12.6 g/dL (13.5-17.5); Lymphocytes % 13.5; Mean Corp. HGB Concentration 33.2 g/dL (32.0-36.0); Mean Corpuscular Hemoglobin 32.8 pg (27.0-33.0); Mean Corpuscular Volume 98.7 fL (80-95); Mean Platelet Volume 12.8 fL (8.0-11.0); Monocytes % 12.2; Neutrophils % 66.3; Platelet Count 139 x1000/uL (130-400); RBC 3.84 m/cumm (4.50-6.00); RBC Distribution Width 12.8 % (11.8-14.1)
[2019-06-16 07:26] LABS: Anion Gap 7.2 mmol/L (3-11); BUN 24 mg/dL (7-18); C-Reactive Protein 1.86 mg/dL (0.0-0.3); CO2 27.8 mmol/L (21.0-32.0); CREATININE 0.64 mg/dL (0.70-1.30); Calcium 9.3 mg/dL (8.5-10.1); Chloride 105 mmol/L (98-107); Glucose 105 mg/dL (74-106); Magnesium 1.8 mg/dL (1.8-2.4); Potassium 4.3 mmol/L (3.5-5.1); Sodium 140 mmol/L (136-145)
[2019-06-16 08:22] LABS: Procalcitonin 0.9 ng/mL
[2019-06-16] MEDS: Metoprolol 12.5 MG TAB PO (08:43)
[2019-06-16] MEDS: Normal Saline Flush 10 ML SYR IVP (08:43)
[2019-06-16] MEDS: Sodium Chloride-Nasal SPRAY-ADULT 44 ML BTL NS ×3 (08:44→17:05)
[2019-06-16] MEDS: Aspirin 81 MG CHEW 324 MG PO (08:44)
[2019-06-16] MEDS: Ketoconazole 2% CREAM 15 GM TUBE TP (08:44)
[2019-06-16] MEDS: Gabapentin 100 MG CAP PO (08:45)
--- NOTE | 2019-06-16 10:32 | PDOC.CMPRO ---
- If Service Date Differs Date of service: 06/16/19 Time of Service: 10:32 Care Management Progress Note S/O:Luda was sleeping when CM came to meet with him. No change in plan. A: Leonard is an 83 year old gentleman admitted with Fever on 06/11/2019 P:Leonard is being treated with IV antibiotics for sepsis. He has blood cultures which are positive for Group G strep. Anticipate he will be discharged home when medically ready. Anticipate no additional services at time of discharge, [facility] be [facility] when patient is discharged, he will need a follow [facility] the [facility]. CM to continue to provide support to patient, family and discharge planning.
[2019-06-16] MEDS: Amoxicillin 875/Clav. 125 TAB PO (11:56)
--- NOTE | 2019-06-16 14:21 | PT.INTREAT ---
Date of service: 06/16/19 Time of Service: 14:21 PT Notes Visit Reasons: FEVER OF UNKNOWN ORIGIN Inpatient Physical Therapy Treatment Note [facility] Date: 06/16/2019 PRECAUTIONS: Fall, Activity as tolerated SUBJECTIVE: Richard is agreeable to participating in PT. He reports that he is feeling much better today. OBJECTIVE: PAIN: No c/o pain BED MOBILITY/TRANSFERS Supine-sit: I with HOB flat Sit-supine: I with HOB flat Sit-stand: I Stand-sit: I GAIT Assistive Device: 4WW in a.m.; 4WW SPC Weight bearing: Full Assist: S with both 4WW and SPC Distance: 250' + 100' in a.m.; 300' with 4WW + 350' with SPC in p.m. THEREX: Patient completed a LE strengthening program in a standing position including functional step-ups, as per flow sheet. ASSESSMENT: Patient tolerated session without complaint. He was able to tolerate a progression in gait distance with 4WW support and supervision. Patient would benefit from continued gait and transfer training, as well as strengthening for improved mobility. PLAN: Continue with PT's POC TREATMENT CODE/TIME: Session 1: 25 minutes; [id number], [id number] Session 2: 25 minutes; [id number]
--- NOTE | 2019-06-16 15:50 | W.PM.DS.N ---
Date of service: 06/16/19 Time of Service: 15:50 DS: Diagnosis Discharge Diagnosis (1) Sepsis: Status: Resolved (2) Streptococcal bacteremia: Status: Acute (3) Sinusitis: Status: Acute (4) Atrial fibrillation: Status: Chronic (5) Hypomagnesemia: Status: Resolved (6) Incidental lung nodule, > 3mm and < 8mm: Status: Acute (7) Dysphagia: Status: Acute Discharge Plan Disposition Patient Disposition: HOME Condition: Good Discharge Details Chief Complaint: GenMedical Clinical Impression: Fever Reason For Visit: FEVER OF UNKNOWN ORIGIN Admit Date/Time: 06/11/19 18:52 Admit Provider: Vasiliy Lopez Attending Provider: Vasiliy Lopez Primary Care Provider: Ulises Mckeon ED Provider: Aníbal Hewitt Hospital Course Hospital Course: Mr Lares is an 83 year old male with PMHx of Afib, not an anticoagulation, as well as 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 His heart rate improved with this therapy as well. His initial blood cultures grew Strep Dysgalactiae in 2 out of 4 bottles. Repeat blood cultures were done only hours later and were negative. The patient had an echocardiogram, which did not reveal any vegetations. Clinically, with blood cultures clearing so quickly, the patient was not felt to have a high probability of endocarditis. The source of bacteremia was felt to be sinusitis, with nasal congestion being the major symptoms reported. Imaging did not reveal any chest or intraabdominal acute infection. General surgery evaluated the patient's PEG tube site as the patient had recently dislodged his tube, and it was felt to look stable and not be the source of infection. Podiatry evaluated the patient's feet, and did not feel that his 2nd and 3rd toe on R foot were infected (these were slightly erythematous on presentation and had hyperpigmentation)Once his culture results were known, he was transitioned from broad spectrum antibiotics to high dose IV ceftriaxone. ID consultation was sought, and [facility] ID recommendation was to change the patient to oral antibiotics. He will complete 10 days of augmentin as outpatient. As far as the patient's heart rate, while he did not initially reveal to us that he was on metoprolol, he now states that in fact he was. [facility]ing [facility] reveals that he was on metoprolol succinate 100 mg daily, but the script apepars inactive/. On discharge, the patient will be on metoprolol tartrate which can be crushed and more easily administered through PEG tube at 50 mg PO BID. He is getting discharged home with a holter monitor. The patient does have a RUL nodule for which he will need outpatient follow up. He was seen by speech therapy, which based on patient's dysphagia, recommended that he have a modified barium swallow, which we do not have available at the time of hospitalization. His food and liquids should be administered strictly through his PEG tube. We recommend oral hygiene with mouth wash twice a day. He is being recommended outpatient modified barium swallow in [facility], unless the [place] can help organize this referral. The patient is being discharged home today. He is medically stable for discharge. Care for patient as well as preparation of his discharge summary took 60 minutes on the day of discharge. Home Meds and New Rx's Prescriptions: New polyethylene glycol 3350 17 gram Powder In Packet 17 g PO DAILY PRN PRN (Reason: Constipation) Qty: 0 RF: 0 sodium chloride [Deep Sea Nasal] 0.65 % Aerosol,[place] 1 spray NS QID Qty: 30 RF: 0 Mouthwash [Biotene Mouthwash] 0 ml mucous membrane BID Qty: 0 RF: 0 metoprolol tartrate [Lopressor] 50 mg tablet 25 mg feeding tube BID Qty: 30 RF: 0 amoxicillin-pot clavulanate 400-57 mg/5 mL suspension for reconstitution 10 ml feeding tube BID Qty: 200 RF: 0 Continued aspirin 325 mg Tablet,Delayed Release (Dr/Ec) 325 mg PO DAILY RF: 0 Isosource 1.5 M[place]hi 0.07 gram-1.5 kcal/mL Liquid 480 ml feeding tube TID RF: 0 Changed atorvastatin 80 mg Tablet 80 mg feeding tube HS Qty: 0 RF: 0 gabapentin 300 mg Capsule 300 mg feeding tube TID Qty: 0 RF: 0 Discontinued metoprolol succinate 100 mg Tablet Extended Release 24 Hr 100 mg PO DAILY RF: 0 Discharge Instructions Instructions: Metoprolol (By mouth), Amoxicillin/Clavulanate Potassium (By mouth), Sinusitis (GEN) Additional Instructions: Finish your antibiotics as prescribed. Return to the hospital with any fever, bleeding, chest pain, or shortness of breath. Rinse your mouth with a regular mouth wash twice a day. You have an appointment with your PCP at the [facility] on 06/20/2019 at 2:45 Pm. Stand Alone Forms: Nursing Discharge Form Referrals: Ulises Mckeon [Primary Care Provider] - Activity:: Activity as Tolerated Equipment/Supplies:: No Equipment Needed Diet:: tube feeding only Discharge Orders Other Ambulatory Orders: Holter Monitor (Outpt) (ONCE) Timeframe: [id number] Facility: [facility] - Location: Respiratory Therapy Ordered By: Maria E Cyr DS: Summary Status at Discharge Functional status at discharge: independent ambulation Overall status at discharge: patient is back to baseline Mental Status: mental status grossly normal Speech and Movement: speech and movement normal Mood: congruent mood Affect: normal affect Exam Narrative Exam Narrative: General: Very pleasant elderly male, sitting in a chair, looks better HEENT: EOMI, MMM Heart: irregularly irregular rhythm, mildly tachycardic Lungs: Diminished breath sounds B, no cough Abdomen: soft, nontender, nondistended Extremities: trace edema at B ankles, -c/c BLE's. Psych Mental Status: mental status grossly normal Speech and Movement: speech and movement normal Mood: congruent mood Affect: normal affect DS: Data Vitals/I&O Vitals and I&O: Vital Signs Temperature 36.8 C 06/16/19 11:37 Temperature Source Tympanic 06/16/19 11:37 Pulse 97 H 06/16/19 11:37 Pulse Rhythm Irregular 06/16/19 07:45 Pulse 94 H 06/14/19 18:01 Respiratory Rate 20 06/16/19 11:37 Respiratory Effort Non-Labored 06/16/19 07:45 Respiratory Depth Normal 06/16/19 07:45 Respiratory Pattern Normal 06/16/19 07:45 Blood Pressure 120/74 06/16/19 11:37 Blood Pressure Mean 82 06/14/19 18:01 Blood Pressure Position Sitting 06/14/19 11:52 Pulse Oximetry 96 06/16/19 11:37 Oxygen Delivery Method Room Air 06/16/19 11:37 Oxygen Flow Rate 0 06/16/19 11:37 Pain Level 0 06/16/19 11:37 Comment 06/15/19 12:06 Intake & Output 06/15/19 06/16/19 06/16/19 23:59 11:59 23:59 Intake Total 1010 / 1510 10 / 10 Output Total 110 / 110 340 / 340 Balance 900 / 1400 10 / -330 -340 / -330 Weight 83 kg Intake: IV 10 10 10 / 10 Intake, Tube Feeding Amount 1000 / 1500 Output: Gastric Drainage 30 / 30 Lt Upper Quadrant 30 / 30 Output, Residual 80 / 80 340 / 340 Other: Comment voids independently in the toilet Voiding Methods Toilet Toilet Data Completed and Pending Completed studies during hospitalization [Text1]: CXR 06/11/2019: No acute findings. CT neck/chest 06/11/2019: Neck CT: Status post resection of the right submandibular gland. No evidence of mass, adenopathy or fluid collection. Chest CT: Small pericardial effusion. Centrilobular emphysema. 7 millimeter right upper lobe nodule. Comparison with previous exams is recommended if available. If no comparison exams are available, follow-up CT is recommended 6-[address] abdomen/pelvis 06/12/2019: Right inguinal hernia containing a loop of nonobstructed bowel. Enlarged prostate. Small bilateral pleural effusions. XR foot 06/12/2019: No acute abnormality. Echo 06/13/2019: Left Ventricle : The left ventricle is normal size. There is normal left ventricular wall thickness. Left ventricular systolic function is normal. There is normal LV segmental wall motion. The left ventricular diastolic function is normal. LVEF is estiamted to be 55-60%. Right Ventricle : Right ventricle appears slightly enlarged. The right ventricular systolic function is normal. Atria : The left atrium size is normal. The right atrium size is normal. Aortic Valve : Aortic valve is trileaflet. Trace to mild aortic regurgitation. There is no aortic valvular stenosis. Mitral Valve : Mitral valve leaflets are thickened. Mild to moderate mitral regurgitation. Normal mitral valve excursion. Tricuspid Valve : Tricuspid valve leaflets are thickened but open well. Moderate tricuspid regurgitation. Pulmonic Valve : Pulmonic valve is not well visualized. Great Vessels : The IVC is dilated. Estimated RVSP is 35-40 mmHg. There are no vegetations detected though endocarditis cannot be entirely ruled out given the surface images. Is no prior echocardiogram available for comparison. Labs on day of discharge: Labs from last 24 hours 06/16/19 06/16/19 06/16/19 06:34 06:34 06:34 WBC 4.90 RBC 3.84 L Hgb 12.6 L Hct 37.9 L MCV 98.7 H MCH 32.8 MCHC 33.2 RDW 12.8 Plt Count 139 MPV 12.8 H Immature Gran % 0.0 Neutrophils % 66.3 Lymphocytes % 13.5 Monocytes % 12.2 Eosinophils % 7.6 Basophils % 0.4 Absolute Neutrophils 3.25 Absolute Lymphocytes 0.66 L Absolute Monocytes 0.60 Absolute Eosinophils 0.37 Absolute Basophils 0.02 Sodium 140 Potassium 4.3 Chloride 105 Carbon Dioxide 27.8 Anion Gap 7.2 BUN 24 H Creatinine 0.64 L Estimated GFR/1.73 m2 >= 60.00 Glucose 105 Calcium 9.3 Magnesium 1.8 C-Reactive Protein 1.86 H Procalcitonin 0.9 Preliminary micro results at discharge 06/12/19 00:30 Blood Culture - Preliminary Blood NO GROWTH 96 HOURS 06/12/19 00:23 Blood Culture - Preliminary Blood NO GROWTH 96 HOURS 06/11/19 16:50 Blood Culture - Preliminary Blood NO GROWTH 96 HOURS [facility] Medical History Atrial fibrillation (Chronic) H/O oral cancer (Acute) Surgical History History of radical neck dissection (Acute) History of submandibular gland removal (Acute) S/P partial glossectomy (Acute) S/P percutaneous endoscopic gastrostomy (PEG) tube placement (Acute) Social History Smoking/Tobacco Use Status: Former Tobacco Use Alcohol Intake: former Substance use type: does not use Do you feel safe at home: Yes Do you feel safe in your relationship?: Yes
--- NOTE | 2019-06-16 18:32 | CMDISCH_ITS ---
- If Service Date Differs Date of service: 06/16/19 Time of Service: 18:32 LACE Index Scoring Tool - Questions: Length of Stay (in days): 4 - 6 Acuity (Admit via E.D.?): Yes E.D. Visits: 1 - Answers: Total Score: 8 Risk of Readmission: Low Risk Care Management Discharge Reason for Hospitalization: Sepsis Discharge Plan: Leonard will return home with a holter monitor. WALTER coordinated [place] ([facility] [address]) follow up appt for 06/20/2019 at 2:45pm. He will also need to follow up with Speech Therapy, which will be coordinated by [place]. CM faxed discharge summary to [place]. Leonard's will drive him home via private vehicle. Patient/Family Education Needs: Review discharge instructions regarding medications, discussion of self care needs including Ask Me Three Services Needed at Discharge: Speech Therapy (outpatient follow up)
--- NOTE | 2019-06-21 14:46 | INDS_ITS ---
Date of service: 06/21/19 Time of Service: 14:46 PT Notes Visit Reasons: FEVER OF UNKNOWN ORIGIN Inpatient Physical Therapy Discharge Summary Dates: 06/11/2019 Dates of Service: 06/13/2019 through 06/16/2019 This is a clinical summary of care provided on the duration of dates listed above. No charge was made in the completion of this documentation. Referring Doctor: Maria E Cyr MD PT Orders: PT CONSULT: Limited ability Precautions: Fall. Standard. Activity as tolerated. Patient Profile/Admitting Diagnosis: Patient is a an 83-year-old male patient who presented to the ED on 06/11/2019 with chief complaints of shaking chills, rigors, and confusion. 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 PMHX: Medical History (Updated 06/12/19 @ 02:26 by Vasiliy Lopez) Atrial fibrillation (Chronic) H/O oral cancer (Acute) Surgical History (Updated 06/12/19 @ 02:06 by Vasiliy Lopez) History of radical neck dissection (Acute) History of submandibular gland removal (Acute) S/P partial glossectomy (Acute) Social History/Home Situation: Patient lives with in a 2 floor house with 4 steps to enter, rails on both sides. He is independent with all aspects of ADLs without the need for an assistive ambulatory device nor adaptive equipment prior to admission. Equipment Owned/DME: None Subjective: NT Objective: General Observation: NT Mental Status: NT Pain: NT ROM: Right Upper Extremity: Shoulder Flexion WFL. Shoulder abduction WFL. Elbow flexion WFL. Wrist flexion WFL. Opening and closing of hand WFL. Left Upper Extremity: Shoulder Flexion WFL. Shoulder abduction WFL. Elbow flexion WFL. Wrist flexion WFL. Opening and closing of hand WFL. Right Lower Extremity: Hip flexion WFL. Hip abduction WFL. Knee flexion WFL. Ankle dorsiflexion WFL. Ankle plantarflexion WFL. Left Lower Extremity: Hip flexion WFL. Hip abduction WFL. Knee flexion WFL. Ankle dorsiflexion WFL. Ankle plantarflexion WFL. Strength: Right Upper Extremity: Shoulder flexors 5/5. Shoulder abductors 5/5. Elbow flexors 5/5. Elbow extensors 5/5. 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 Left Upper Extremity: Shoulder flexors 5/5. Shoulder abductors 5/5. Elbow flexors 5/5. Elbow extensors 5/5. 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 Right Lower Extremity: Hip flexors 5/5. Hip abductors 5/5. Knee flexors 5/5. Knee extensors 5/5. Ankle dorsiflexors 5/5. Ankle plantarflexors 5/5. Left Lower Extremity:Hip flexors 5/5. Hip abductors 5/5. Knee flexors 5/5. Knee extensors 5/5. Ankle dorsiflexors 5/5. Ankle plantarflexors 5/5. Sensation: Intact as to pain and pressure on bilateral lower extremities. Bed Mobility/Transfers: I did help him Sit to supine independent Sit to stand independent Stand to sit independent Bed to chair independent Chair to bed independent Gait: Patient tolerated level surface ambulation of up to 300 feet using a front wheeled walker and 350 feet using single-point cane with FWB and supervision. Balance: Static Sitting: Normal Dynamic Sitting: Normal Static Standing: Good Dynamic Standing: Fair Assessment: Patient is a an 83-year-old male patient who presented to the ED on 06/11/2019 with chief complaints of shaking chills, rigors, and confusion. 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 Patient demonstrated significant functional mobility level during this episode of care as indicated above. Patient continues to present with clinical signs and symptoms consistent with current/admitting diagnoses that have resulted to mobility limitations and gait instability as demonstrated by the following impairment level findings: 1. Impaired standing balance 2. Impaired activity tolerance Impairments continue to contribute to the following functional limitations: 1. Inability to safely ambulate without assistive device and physical assistance 2. Increase completion time for mobility ADL performance 3. Increased fall risk Goals: Goals X1 week 1. Supine-Sit independent MET 2. Sit-Supine independent MET 3. Sit-Stand independent MET 4. Stand-Sit independent MET 5. Bed-Chair independent MET 6. Chair-Bed independent MET 7. Independent gait on level surface with use of least restrictive device for at least 300 feet without report of pain nor dyspnea NOT MET 8. Independent stair negotiation while holding onto bilateral rails for at least 5 steps without report of pain nor dyspnea NOT MET 9. Independent with home exercise program NOT MET 10. Good static and dynamic standing balance/tolerance NOT MET DISCHARGE RECOMMENDATIONS: Patient will benefit from home health PT services in order to progress mobility level using least restrictive assistive ambulatory device, assess home safety, identify additional equipment needs, and establish a functional maintenance program that will increase ability of patient to remain at home. TREATMENT CODE/TIME:NC. Thank you very much for this referral. Anu Anna PT, DPT, CLT [facility] [place], [place]
== END 2019-06-16 18:15 | disposition home or self-care (01) | DRG 871 ==
LOC: ER 18:54 → ICU 20:47 → MS 06-16 16:01 → ICU 06-24 11:28
PROVIDERS: Admitting Provider Internal Medicine; Emergency Provider Student in an Organized Health Care Education/Training Program; PCP Otolaryngology; Visit Provider Internal Medicine
DX: A40.8 Other streptococcal sepsis (principal); R65.21 Severe sepsis with septic shock; Z43.1 Encounter for attention to gastrostomy; J32.9 Chronic sinusitis, unspecified; Z87.891 Personal history of nicotine dependence; I48.91 Unspecified atrial fibrillation; E83.42 Hypomagnesemia; R91.1 Solitary pulmonary nodule; Z85.89 Personal history of malignant neoplasm of other organs and systems; Z90.89 Acquired absence of other organs; R13.10 Dysphagia, unspecified; Z92.3 Personal history of irradiation; B35.1 Tinea unguium; B35.3 Tinea pedis; L84 Corns and callosities; G62.9 Polyneuropathy, unspecified; Z51.5 Encounter for palliative care
CPT/HCPCS: 36415; 36416; 70491; 80048; 80053; 80076; 82962; 84145; 85652; 87040; 87077; 87449; 92610; 93005; 93306; 96361; 96365; 96366; 97110; 97162; 97530; 99221; 99223; 99232; 99239; 99252; 99255; 99285; 99291; J1650; 71046; 71260; 73620; 74177; 80202; 81003; 83605; 83735; 84439; 84443; 84484; 85025; 86140; 87070; 87186; 87205; 93010; 93225; 99233; J0131; J1956; J2543; J3370; J3475; J3490

== ENCOUNTER 2019-07-04 07:23 | Outpatient (CLI) | payer MEDICARE, OTHER, SELFPAY ==
--- NOTE | 2019-07-04 08:46 | W.HOLTRPT ---
Date of service: 07/04/19 Time of Service: 08:47 Holter Monitor Report Holter Monitor Note: There is a 2-week Holter monitor ordered for the indication of atrial fibrillation. ?The patient was in atrial fibrillation for the entirety of the recording. The maximum rate was 183 bpm. ?There were no episodes of ventricular tachycardia and 2 single ventricular ectopic beats. ?There were no pauses greater than 3 seconds and no evidence of high degree heart block. ?There were no patient triggered events.
== END 2019-07-04 07:43 ==
PROVIDERS: PCP Otolaryngology; Visit Provider Otolaryngology
DX: I48.91 Unspecified atrial fibrillation (principal)
CPT/HCPCS: 93227; 93226

== ENCOUNTER 2021-07-10 03:23 | Outpatient (CLI) | payer OTHER, SELFPAY ==
[2021-07-10 07:35] LABS: CREATININE 0.9 mg/dL (0.70-1.30)
== END 2021-07-10 03:24 | disposition home or self-care (01) ==
PROVIDERS: PCP Otolaryngology; Visit Provider Preventive Medicine Undersea and Hyperbaric Medicine
DX: C34.91 Malignant neoplasm of unspecified part of right bronchus or lung (principal)
CPT/HCPCS: 36415; 82565

== ENCOUNTER 2021-07-15 03:45 | Outpatient (CLI) | payer OTHER, SELFPAY ==
[2021-07-15 11:29] LABS: Abs Immature Grans 0.02 10^3/uL (0.0-0.06); Absolute Basophil Count 0.05 10^3/uL (0.0-0.2); Absolute Eosinophil Count 0.07 10^3/uL (0.0-0.7); Absolute Lymphocyte Count 0.73 10^3/uL (1.2-3.4); Absolute Monocyte Count 0.84 10^3/uL (0.1-0.8); Absolute Neutrophil Count 6.32 10^3/uL (1.2-6.7); Basophils % 0.6; Eosinophils % 0.9; HCT 42.3 % (40.0-50.0); HGB 13.9 g/dL (13.5-17.5); Immature Grans % 0.2; Lymphocytes % 9.1; MCH 33.3 pg (27.0-33.0); MCHC 32.9 % (32.0-36.0); MCV 101.4 fL (80-95); Monocytes % 10.5; Neutrophils % 78.7; Nucleated RBC 0 %; Platelet Count 189 10^3/uL (130-400); RBC 4.17 10^6/uL (4.36-5.78); RDW 12.2 % (11.8-14.1); RDW-SD 45.9 fL; WBC 8.03 10^3/uL (4.4-10.8)
[2021-07-15 11:42] LABS: ALT 50 U/L (16-63); AST 38 U/L (15-37); Albumin 3.1 g/dL (3.4-5.0); Alkaline Phosphatase 135 U/L (46-116); BUN 28 mg/dL (7-18); Bilirubin, Total 0.6 mg/dL (0.2-1.0); CREATININE 0.9 mg/dL (0.70-1.30); Calcium 9.6 mg/dL (8.5-10.1); Chloride 101 mmol/L (98-107); Glucose 106 mg/dL (74-106); Magnesium 2.2 mg/dL (1.8-2.4); Potassium 4.5 mmol/L (3.5-5.1); Sodium 138 mmol/L (136-145); Total Protein 7.6 g/dL (6.4-8.2)
== END 2021-07-15 03:46 | disposition home or self-care (01) ==
LOC: LBO 03:45
PROVIDERS: PCP Otolaryngology; Visit Provider Internal Medicine Medical Oncology
DX: C34.91 Malignant neoplasm of unspecified part of right bronchus or lung (principal)
CPT/HCPCS: 36415; 80053; 83735; 85025

== ENCOUNTER 2021-07-22 17:23 | Outpatient (CLI) | payer OTHER, SELFPAY ==
[2021-07-22 12:51] LABS: Abs Immature Grans 0.03 10^3/uL (0.0-0.06); Absolute Basophil Count 0.04 10^3/uL (0.0-0.2); Absolute Lymphocyte Count 0.89 10^3/uL (1.2-3.4); Absolute Monocyte Count 0.92 10^3/uL (0.1-0.8); Absolute Neutrophil Count 6.45 10^3/uL (1.2-6.7); Basophils % 0.5; Eosinophils % 1.2; HCT 40.5 % (40.0-50.0); HGB 13.1 g/dL (13.5-17.5); Immature Grans % 0.4; Lymphocytes % 10.6; MCH 33.1 pg (27.0-33.0); MCHC 32.3 % (32.0-36.0); MCV 102.3 fL (80-95); MPV 12.1 fL (8.0-11.0); Monocytes % 10.9; Neutrophils % 76.4; Nucleated RBC 0 %; Platelet Count 206 10^3/uL (130-400); RBC 3.96 10^6/uL (4.36-5.78); RDW 12.1 % (11.8-14.1); RDW-SD 45.8 fL; WBC 8.43 10^3/uL (4.4-10.8)
[2021-07-22 13:06] LABS: ALT 54 U/L (16-63); AST 39 U/L (15-37); Albumin 3.1 g/dL (3.4-5.0); Alkaline Phosphatase 136 U/L (46-116); Anion Gap 3.1 mmol/L (3-11); BUN 31 mg/dL (7-18); Bilirubin, Total 0.6 mg/dL (0.2-1.0); CO2 30.9 mmol/L (21.0-32.0); CREATININE 0.9 mg/dL (0.70-1.30); Chloride 102 mmol/L (98-107); Glucose 136 mg/dL (74-106); Magnesium 2.5 mg/dL (1.8-2.4); Potassium 4.2 mmol/L (3.5-5.1); Sodium 136 mmol/L (136-145); Total Protein 7.6 g/dL (6.4-8.2)
== END 2021-07-22 17:24 | disposition home or self-care (01) ==
LOC: LBO 17:24
PROVIDERS: PCP Otolaryngology; Visit Provider Internal Medicine Medical Oncology
DX: C34.91 Malignant neoplasm of unspecified part of right bronchus or lung (principal)
CPT/HCPCS: 36415; 80053; 83735; 85025

== ENCOUNTER 2021-07-29 12:28 | Outpatient (CLI) | payer OTHER, SELFPAY ==
[2021-07-29 08:12] LABS: Abs Immature Grans 0.04 10^3/uL (0.0-0.06); Absolute Basophil Count 0.02 10^3/uL (0.0-0.2); Absolute Eosinophil Count 0.12 10^3/uL (0.0-0.7); Absolute Lymphocyte Count 0.67 10^3/uL (1.2-3.4); Absolute Monocyte Count 0.39 10^3/uL (0.1-0.8); Basophils % 0.3; Eosinophils % 1.7; HCT 37.3 % (40.0-50.0); HGB 12.3 g/dL (13.5-17.5); Immature Grans % 0.6; Lymphocytes % 9.5; MCH 33.6 pg (27.0-33.0); MCV 101.9 fL (80-95); MPV 12.3 fL (8.0-11.0); Monocytes % 5.5; Neutrophils % 82.4; Nucleated RBC 0 %; Platelet Count 183 10^3/uL (130-400); RBC 3.66 10^6/uL (4.36-5.78); RDW 11.9 % (11.8-14.1); RDW-SD 44.8 fL; WBC 7.04 10^3/uL (4.4-10.8)
[2021-07-29 08:24] LABS: ALT 59 U/L (16-63); AST 43 U/L (15-37); Albumin 2.6 g/dL (3.4-5.0); Alkaline Phosphatase 131 U/L (46-116); BUN 29 mg/dL (7-18); Bilirubin, Total 0.6 mg/dL (0.2-1.0); CREATININE 0.8 mg/dL (0.70-1.30); Calcium 9.1 mg/dL (8.5-10.1); Chloride 103 mmol/L (98-107); Glucose 134 mg/dL (74-106); Magnesium 2.1 mg/dL (1.8-2.4); Potassium 4.3 mmol/L (3.5-5.1); Sodium 136 mmol/L (136-145); Total Protein 6.9 g/dL (6.4-8.2)
== END 2021-07-29 12:29 | disposition home or self-care (01) ==
LOC: LBO 12:37
PROVIDERS: PCP Otolaryngology; Visit Provider Internal Medicine Medical Oncology
DX: C34.91 Malignant neoplasm of unspecified part of right bronchus or lung (principal)
CPT/HCPCS: 36415; 80053; 83735; 85025

== ENCOUNTER 2021-08-05 02:57 | Outpatient (CLI) | payer OTHER, SELFPAY ==
[2021-08-05 09:46] LABS: Abs Immature Grans 0.01 10^3/uL (0.0-0.06); Absolute Basophil Count 0.01 10^3/uL (0.0-0.2); Absolute Lymphocyte Count 0.34 10^3/uL (1.2-3.4); Absolute Neutrophil Count 2.43 10^3/uL (1.2-6.7); Basophils % 0.3; HCT 37.3 % (40.0-50.0); HGB 12.2 g/dL (13.5-17.5); Immature Grans % 0.3; Lymphocytes % 11.4; MCH 32.9 pg (27.0-33.0); MCHC 32.7 % (32.0-36.0); MCV 100.5 fL (80-95); MPV 12.4 fL (8.0-11.0); Monocytes % 6.7; Neutrophils % 81.3; Nucleated RBC 0 %; Platelet Count 202 10^3/uL (130-400); RBC 3.71 10^6/uL (4.36-5.78); RDW 11.9 % (11.8-14.1); RDW-SD 43.4 fL; WBC 2.99 10^3/uL (4.4-10.8)
[2021-08-05 09:57] LABS: ALT 52 U/L (16-63); AST 29 U/L (15-37); Albumin 2.9 g/dL (3.4-5.0); Alkaline Phosphatase 124 U/L (46-116); Anion Gap 5.5 mmol/L (3-11); BUN 32 mg/dL (7-18); Bilirubin, Total 0.6 mg/dL (0.2-1.0); CO2 30.5 mmol/L (21.0-32.0); CREATININE 0.9 mg/dL (0.70-1.30); Calcium 9.6 mg/dL (8.5-10.1); Chloride 99 mmol/L (98-107); Glucose 122 mg/dL (74-106); Magnesium 2.1 mg/dL (1.8-2.4); Potassium 4.3 mmol/L (3.5-5.1); Sodium 135 mmol/L (136-145)
== END 2021-08-05 02:58 | disposition home or self-care (01) ==
LOC: LBO 02:57
PROVIDERS: PCP Otolaryngology; Visit Provider Internal Medicine Medical Oncology
DX: C34.91 Malignant neoplasm of unspecified part of right bronchus or lung (principal)
CPT/HCPCS: 36415; 80053; 83735; 85025

== ENCOUNTER 2021-08-12 04:30 | Outpatient (CLI) | payer OTHER, SELFPAY ==
[2021-08-12 09:21] LABS: Abs Immature Grans 0.01 10^3/uL (0.0-0.06); Absolute Basophil Count 0.03 10^3/uL (0.0-0.2); Absolute Eosinophil Count 0.01 10^3/uL (0.0-0.7); Absolute Lymphocyte Count 0.17 10^3/uL (1.2-3.4); Absolute Neutrophil Count 1.83 10^3/uL (1.2-6.7); Basophils % 1.3; Eosinophils % 0.4; HCT 34.9 % (40.0-50.0); HGB 11.3 g/dL (13.5-17.5); Immature Grans % 0.4; Lymphocytes % 7.6; MCH 32.8 pg (27.0-33.0); MCHC 32.4 % (32.0-36.0); MCV 101.2 fL (80-95); MPV 11.8 fL (8.0-11.0); Monocytes % 8.9; Neutrophils % 81.4; Nucleated RBC 0 %; Platelet Count 140 10^3/uL (130-400); RBC 3.45 10^6/uL (4.36-5.78); RDW 12.1 % (11.8-14.1); RDW-SD 44.3 fL; WBC 2.25 10^3/uL (4.4-10.8)
[2021-08-12 09:33] LABS: ALT 32 U/L (16-63); AST 31 U/L (15-37); Alkaline Phosphatase 122 U/L (46-116); Anion Gap 6.3 mmol/L (3-11); BUN 29 mg/dL (7-18); Bilirubin, Total 0.8 mg/dL (0.2-1.0); CO2 30.7 mmol/L (21.0-32.0); CREATININE 0.9 mg/dL (0.70-1.30); Calcium 9.3 mg/dL (8.5-10.1); Chloride 104 mmol/L (98-107); Glucose 87 mg/dL (74-106); Magnesium 2.1 mg/dL (1.8-2.4); Potassium 4.3 mmol/L (3.5-5.1); Sodium 141 mmol/L (136-145); Total Protein 6.9 g/dL (6.4-8.2)
== END 2021-08-12 04:31 | disposition home or self-care (01) ==
LOC: LBO 04:30
PROVIDERS: PCP Otolaryngology; Visit Provider Internal Medicine Medical Oncology
DX: C34.91 Malignant neoplasm of unspecified part of right bronchus or lung (principal)
CPT/HCPCS: 36415; 80053; 83735; 85025

== ENCOUNTER 2021-08-19 02:10 | Outpatient (CLI) | payer OTHER, SELFPAY ==
[2021-08-19 08:11] LABS: Abs Immature Grans 0.01 10^3/uL (0.0-0.06); Absolute Basophil Count 0.01 10^3/uL (0.0-0.2); Absolute Lymphocyte Count 0.17 10^3/uL (1.2-3.4); Absolute Monocyte Count 0.06 10^3/uL (0.1-0.8); Absolute Neutrophil Count 2.09 10^3/uL (1.2-6.7); Basophils % 0.4; HCT 31.7 % (40.0-50.0); HGB 10.6 g/dL (13.5-17.5); Immature Grans % 0.4; Lymphocytes % 7.3; MCH 33.7 pg (27.0-33.0); MCHC 33.4 % (32.0-36.0); MCV 100.6 fL (80-95); MPV 11.5 fL (8.0-11.0); Monocytes % 2.6; Neutrophils % 89.3; Nucleated RBC 0 %; RBC 3.15 10^6/uL (4.36-5.78); RDW 12.1 % (11.8-14.1); RDW-SD 43.4 fL; WBC 2.34 10^3/uL (4.4-10.8)
[2021-08-19 08:21] LABS: Platelet Count 83 10^3/uL (130-400)
[2021-08-19 08:27] LABS: ALT 31 U/L (16-63); AST 26 U/L (15-37); Alkaline Phosphatase 114 U/L (46-116); Anion Gap 6.8 mmol/L (3-11); BUN 27 mg/dL (7-18); Bilirubin, Total 0.8 mg/dL (0.2-1.0); CO2 27.2 mmol/L (21.0-32.0); CREATININE 0.8 mg/dL (0.70-1.30); Calcium 9.6 mg/dL (8.5-10.1); Chloride 104 mmol/L (98-107); Glucose 115 mg/dL (74-106); Magnesium 1.9 mg/dL (1.8-2.4); Potassium 4.8 mmol/L (3.5-5.1); Sodium 138 mmol/L (136-145); Total Protein 6.9 g/dL (6.4-8.2)
== END 2021-08-19 02:11 | disposition home or self-care (01) ==
LOC: LBO 02:10
PROVIDERS: PCP Otolaryngology; Visit Provider Internal Medicine Medical Oncology
DX: C34.91 Malignant neoplasm of unspecified part of right bronchus or lung (principal)
CPT/HCPCS: 36415; 80053; 83735; 85025

== ENCOUNTER 2021-08-26 03:28 | Outpatient (CLI) | payer OTHER, SELFPAY ==
[2021-08-26 09:47] LABS: HGB 10.4 g/dL (13.5-17.5); MCH 33.8 pg (27.0-33.0); MCHC 32.5 % (32.0-36.0); MCV 103.9 fL (80-95); Nucleated RBC 0 %; Platelet Count 105 10^3/uL (130-400); RBC 3.08 10^6/uL (4.36-5.78); RDW 14.1 % (11.8-14.1); RDW-SD 47.6 fL
[2021-08-26 10:01] LABS: ALT 28 U/L (16-63); AST 23 U/L (15-37); Alkaline Phosphatase 121 U/L (46-116); Anion Gap 6.5 mmol/L (3-11); BUN 22 mg/dL (7-18); Bilirubin, Total 0.7 mg/dL (0.2-1.0); CO2 27.5 mmol/L (21.0-32.0); CREATININE 0.9 mg/dL (0.70-1.30); Calcium 9.3 mg/dL (8.5-10.1); Chloride 104 mmol/L (98-107); Glucose 115 mg/dL (74-106); Magnesium 2.2 mg/dL (1.8-2.4); Potassium 3.9 mmol/L (3.5-5.1); Sodium 138 mmol/L (136-145); Total Protein 6.8 g/dL (6.4-8.2)
[2021-08-26 10:10] LABS: Absolute Lymphocyte Count 0.32 10^3/uL (1.2-3.4); Absolute Monocyte Count 0.06 10^3/uL (0.1-0.8); Absolute Neutrophil Count 1.09 10^3/uL (1.2-6.7); Atypical Lymphocytes % 3; Bands % 8; Diff Comment Manual Differential; RBC Morphology Normal; WBC 1.47 10^3/uL (4.4-10.8)
== END 2021-08-26 03:29 | disposition home or self-care (01) ==
LOC: LBO 03:29
PROVIDERS: PCP Otolaryngology; Visit Provider Internal Medicine Medical Oncology
DX: C34.91 Malignant neoplasm of unspecified part of right bronchus or lung (principal)
CPT/HCPCS: 36415; 80053; 83735; 85025

== ENCOUNTER 2021-09-02 03:42 | Outpatient (CLI) | payer OTHER, SELFPAY ==
[2021-09-02 09:16] LABS: Abs Immature Grans 0.01 10^3/uL (0.0-0.06); Absolute Basophil Count 0.02 10^3/uL (0.0-0.2); Absolute Eosinophil Count 0.08 10^3/uL (0.0-0.7); Absolute Lymphocyte Count 0.24 10^3/uL (1.2-3.4); Absolute Monocyte Count 0.53 10^3/uL (0.1-0.8); Absolute Neutrophil Count 2.58 10^3/uL (1.2-6.7); Basophils % 0.6; Eosinophils % 2.3; HCT 35.4 % (40.0-50.0); HGB 11.3 g/dL (13.5-17.5); Immature Grans % 0.3; Lymphocytes % 6.9; MCH 34.5 pg (27.0-33.0); MCHC 31.9 % (32.0-36.0); MCV 107.9 fL (80-95); MPV 10.9 fL (8.0-11.0); Monocytes % 15.3; Neutrophils % 74.6; Nucleated RBC 0 %; Platelet Count 283 10^3/uL (130-400); RBC 3.28 10^6/uL (4.36-5.78); RDW 16.5 % (11.8-14.1); RDW-SD 62.4 fL; WBC 3.46 10^3/uL (4.4-10.8)
[2021-09-02 09:29] LABS: Diff Comment RBC Morph Reviewed; Macrocytosis 2+
[2021-09-02 09:35] LABS: ALT 27 U/L (16-63); AST 27 U/L (15-37); Albumin 3.3 g/dL (3.4-5.0); Alkaline Phosphatase 132 U/L (46-116); Anion Gap 7.4 mmol/L (3-11); BUN 24 mg/dL (7-18); Bilirubin, Total 0.6 mg/dL (0.2-1.0); CO2 29.6 mmol/L (21.0-32.0); CREATININE 0.9 mg/dL (0.70-1.30); Calcium 9.8 mg/dL (8.5-10.1); Chloride 104 mmol/L (98-107); Glucose 108 mg/dL (74-106); Magnesium 2.3 mg/dL (1.8-2.4); Potassium 4.2 mmol/L (3.5-5.1); Sodium 141 mmol/L (136-145); Total Protein 7.3 g/dL (6.4-8.2)
== END 2021-09-02 03:43 | disposition home or self-care (01) ==
LOC: LBO 03:43
PROVIDERS: PCP Otolaryngology; Visit Provider Internal Medicine Medical Oncology
DX: C34.91 Malignant neoplasm of unspecified part of right bronchus or lung (principal)
CPT/HCPCS: 36415; 80053; 83735; 85025

== ENCOUNTER 2021-09-18 01:33 | Outpatient (CLI) | payer OTHER, SELFPAY ==
--- NOTE | 2021-09-18 10:29 | DI.CT_ITS ---
Exam(s) CT CHEST W EXAM: CT CHEST W CLINICAL HISTORY: RUL LUNG CA,C34.11,S/P CHEMO,RT,RESTAGING EXAM,[id number] TECHNIQUE: Imaging Protocol: Axial computed tomography images with coronal and sagittal reformatted images were created and reviewed CONTRAST MATERIAL: Intravenous: Omnipaque 350 Contrast volume:structured data in ml. COMPARISON: CT CT NECK CHEST W from 06/11/2019 FINDINGS: Exam is mildly limited by respiratory motion. Tracheobronchial tree: No bronchiectasis or mucous plugging. Mediastinum and Mabel: No dominant adenopathy or fluid collection. Pulmonary parenchyma: 2.3 by 1.8 centimeter spiculated nodule right upper lobe. Emphysematous change s. Scarring right upper lobe. No consolidation. Pleura: No effusion or pneumothorax. Pleural thickening greatest right lung apex. Heart: Biatrial enlargement. Mild coronary artery calcifications are seen. Aorta: Thoracic aorta non-dilated. Moderate atherosclerotic changes. Upper abdomen: Peg tube. Lymph nodes: Within normal limits. Bones: Degenerative changes. No fractures, lytic or blastic lesions. Soft tissues: Unremarkable. IMPRESSION: 2.3 centimeter right upper lobe spiculated mass. No additional nodules or infiltrates. No adenopath y. RADIATION DOSE DELIVERED: 523.72mGy.cm Total DLP DATA REPOSITORY: All CT scans at this facility are submitted to the National Radiology Data Registry (NRDR) Dose Index Registry (DIR) with the [employer] ([employer]). RADIATION OPTIMIZATION: All CT scans at this facility use at least one of these dose optimization te chniques: automated exposure control; mA and/or kV adjustment per patient size (includes targeted exa ms where dose is matched to clinical indication); or iterative reconstruction.
[2021-09-18] MEDS: Omnipaque 350 MG/ML 100 ML BTL 70 ML IJ (10:43)
== END 2021-09-18 01:53 ==
PROVIDERS: PCP Otolaryngology; Visit Provider Internal Medicine Medical Oncology
DX: C34.11 Malignant neoplasm of upper lobe, right bronchus or lung (principal); Z92.3 Personal history of irradiation; R91.8 Other nonspecific abnormal finding of lung field
CPT/HCPCS: 71260; J3490

== ENCOUNTER 2021-09-23 02:51 | Outpatient (CLI) | payer OTHER, SELFPAY ==
[2021-09-23 08:38] LABS: Abs Immature Grans 0.03 10^3/uL (0.0-0.06); Absolute Basophil Count 0.04 10^3/uL (0.0-0.2); Absolute Eosinophil Count 0.28 10^3/uL (0.0-0.7); Absolute Lymphocyte Count 0.33 10^3/uL (1.2-3.4); Absolute Monocyte Count 1.09 10^3/uL (0.1-0.8); Absolute Neutrophil Count 5.79 10^3/uL (1.2-6.7); Basophils % 0.5; Eosinophils % 3.7; HCT 34.2 % (40.0-50.0); HGB 11.3 g/dL (13.5-17.5); Immature Grans % 0.4; Lymphocytes % 4.4; MCH 35.5 pg (27.0-33.0); MCV 107.5 fL (80-95); MPV 11.4 fL (8.0-11.0); Monocytes % 14.4; Neutrophils % 76.6; Platelet Count 235 10^3/uL (130-400); RBC 3.18 10^6/uL (4.36-5.78); WBC 7.56 10^3/uL (4.4-10.8)
[2021-09-23 08:57] LABS: Diff Comment RBC Morph Reviewed
[2021-09-23 08:58] LABS: Macrocytosis 1+
[2021-09-23 09:01] LABS: ALT 41 U/L (16-63); AST 33 U/L (15-37); Alkaline Phosphatase 119 U/L (46-116); Anion Gap 4.6 mmol/L (3-11); BUN 22 mg/dL (7-18); Bilirubin, Total 0.7 mg/dL (0.2-1.0); CO2 30.4 mmol/L (21.0-32.0); CREATININE 0.9 mg/dL (0.70-1.30); Calcium 9.5 mg/dL (8.5-10.1); Chloride 102 mmol/L (98-107); FREE T4 0.86 ng/dL (0.76-1.46); Glucose 108 mg/dL (74-106); Magnesium 2.1 mg/dL (1.8-2.4); Potassium 4.3 mmol/L (3.5-5.1); Sodium 137 mmol/L (136-145); TSH 16.25 uIU/mL (0.36-3.74); Total Protein 6.9 g/dL (6.4-8.2)
== END 2021-09-23 02:52 | disposition home or self-care (01) ==
LOC: LBO 02:51
PROVIDERS: PCP Otolaryngology; Visit Provider Internal Medicine Medical Oncology
DX: C34.11 Malignant neoplasm of upper lobe, right bronchus or lung (principal); Z79.899 Other long term (current) drug therapy
CPT/HCPCS: 36415; 80053; 83735; 84439; 84443; 85025

== ENCOUNTER 2021-09-23 02:51 | Outpatient (CLI) | payer OTHER, SELFPAY | END 2021-09-23 02:52 | disposition home or self-care (01) | LOC: LBO 02:51 | PROVIDERS: PCP Otolaryngology; Visit Provider Internal Medicine Medical Oncology ==

== ENCOUNTER 2021-10-28 03:58 | Outpatient (CLI) | payer OTHER, SELFPAY | END 2021-10-28 03:59 | disposition home or self-care (01) | LOC: LBO 03:59 | PROVIDERS: PCP Otolaryngology; Visit Provider Internal Medicine Medical Oncology ==

== ENCOUNTER 2021-12-16 02:58 | Outpatient (CLI) | payer OTHER, SELFPAY | END 2021-12-16 02:59 | disposition home or self-care (01) | LOC: LBO 02:58 | PROVIDERS: PCP Otolaryngology; Visit Provider Internal Medicine Medical Oncology ==